=== PATIENT | male | born 1930 | race Two or more races ===

== ENCOUNTER 2016-12-18 06:32 | Inpatient (IN) | payer MEDICARE ==
--- NOTE | 2016-12-02 19:01 | HP ---
PREOPERATIVE HISTORY AND PHYSICAL: DATE OF ADMISSION/SURGERY: 12/18/16 This patient is scheduled for AA admission by Dr. Ch on 12/18/16. DATE OF PREOPERATIVE HISTORY AND PHYSICAL EXAMINATION: 12/02/16. ATTENDING SURGEON: Dr. Guille Ch (dictated by Vijaya Scherer NP). CHIEF COMPLAINT: Colon cancer. HISTORY OF PRESENT ILLNESS: The patient is an 86-year-old male recently evaluated by Dr. 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 The patient was diagnosed with anemia and rectal bleeding. Workup included an EGD and a colonoscopy by Dr. Garner, . The EGD revealed duodenitis and gastric erosion. The colonoscopy got as far as a sigmoid lesion that did not allow additional navigation of the scope. The large colonic mass was friable and oozing blood. Biopsies were taken and the lesion was injected with tattoo ink. No other lesions were identified and the biopsy revealed moderately differentiated adenocarcinoma. Dr. Ch examined the patient and ordered a CAT scan of the chest, abdomen, and pelvis. There were no suspicious thoracic lesions. Other than the primary tumor in the sigmoid colon, there were no other intra-abdominal lesions. There was a nonspecific sclerotic lesion of the right femur described as very low suspicion for metastasis. Dr. Ch has recommended open partial colectomy and described to the patient and his family the nature of the surgical procedure, the rationale for the surgical procedure, the relevant risks and benefits, the typical hospitalization, and expected postoperative recovery. The patient will take a bowel cleansing prep on the day before surgery consisting of clear liquid diet, Colyte laxative, neomycin, and Flagyl tablets. The patient and his family have had a chance to ask questions and stated that they understand the information and are satisfied with the answers given to their questions. The patient will sign surgical consent on the day of surgery. The patient has been cleared to proceed by Dr. Gutierrez from Cardiology. Please see review of systems for further details. The patient will hold Plavix for 5 days preoperatively and take the last dose, 12/12/16. The patient is extremely hard of hearing and is very dependent on his family for information. PAST MEDICAL HISTORY: Significant for left CVA, with residual unsteady gait and spastic paraparesis; hypertension; aortic stenosis; and anemia. Hard of hearing. PAST SURGICAL HISTORY: Appendectomy, cataract extraction, and left ear surgery for cancer. MEDICATIONS: 1. Plavix 75 mg p.o. daily and he will take his last dose preoperatively, 12/12. 2. Folic acid 1 mg p.o. daily. 3. Travatan Z 0.004% one drop in both eyes at bedtime daily. 4. Losartan 100 mg p.o. daily. 5. Timolol maleate 0.5% one drop right eye daily in the morning. 6. Fluvastatin 40 mg p.o. daily at bedtime. 7. Centrum Silver 1 tablet daily. 8. Brimonidine 0.2% b.i.d. 9. Hydrochlorothiazide 25 mg p.o. daily. 10. Vitamin B12 p.o. daily. ALLERGIES: No known drug allergies. FAMILY HISTORY: No known anesthesia complications or bleeding tendencies. One of the patient's brothers had deep vein thrombosis. The patient's father had leukemia and the patient's mother was diabetic. SOCIAL HISTORY: He is and lives with his . His son accompanied them to the visit today. 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 He has never been a smoker. He currently does not drink alcohol or use other substances. REVIEW OF SYSTEMS: The patient has a history of aortic stenosis and underwent a transesophageal echocardiogram with Dr. Gutierrez, 11/11/16, which confirmed moderate to severe aortic stenosis. Dr. Gutierrez had a long discussion with the patient and his family regarding the aortic stenosis and the need for surgery, and they agreed that the most reasonable option at this time would be to proceed with the colon cancer surgery in which there is an elevated, but not prohibitive, risk of cardiovascular complications. Dr. Gutierrez also discussed this in person with Dr. Che from Anesthesia. The patient underwent transthoracic echocardiogram, 11/01/16, which revealed normal LV size with an ejection fraction greater than 70%. He also underwent a chemical stress test, , which was normal with an ejection fraction around 68% to 69%. He has a history of left CVA. His speech is clear. He does not have any deficits of the upper extremities. 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 He denies any chest pain or palpitations. He denies any history of deep vein thrombosis or pulmonary embolism. He has been on Plavix and will hold that for 5 days preoperatively. He denies any unusual shortness of breath. He denies any history of pneumonia; he denies any previous anesthesia complications; he denies any blood transfusions; he was diagnosed with anemia related to the rectal bleeding in October and recent hemoglobin was 9. He denies any nausea, vomiting, current rectal bleeding, constipation, or diarrhea. He denies any acid reflux. His upper endoscopy did reveal duodenitis and gastric erosion. Negative CLOtest. He denies any change in his weight. He denies any dysuria. He uses a walker for gait stability. PHYSICAL EXAMINATION GENERAL SURVEY: The patient is an 86-year-old male, well developed, well nourished, in no acute distress. VITAL SIGNS: Height 64-1/2 inches, weight 146 pounds, body mass index 24.7, blood pressure 120/78, pulse 82 and regular, respiratory rate 16, temperature 98.3 tympanic. HEENT: Benign. NECK: Supple. No cervical lymphadenopathy. BACK: No CVA tenderness. LUNGS: Breath sounds bilaterally clear and equal. No tachypnea. No increased work of breathing. HEART: Systolic murmur radiates to bilateral carotids. Regular rate and rhythm , 3/6 systolic murmur. ABDOMEN: Active bowel sounds. Soft, nondistended, nontender throughout. No obvious masses or organomegaly or evidence of umbilical hernia. EXTREMITIES: Warm. No edema. Full range of motion of the upper extremities. The left lower extremity has spastic paraparesis. Right lower extremity, normal range of motion and strength. GENITALIA AND RECTAL: Exams deferred. NEUROLOGIC: Alert and oriented x3. Uses a walker for gait steadiness. SKIN: Warm, dry, intact. IMPRESSION: Adenocarcinoma of the splenic flexure. PLAN: AA admission to Dr. Ch's service on 12/18/16, for open partial colectomy. The patient will take a bowel cleansing prep on the day before surgery, 12/17/16, consisting of clear liquids, Colyte laxative, neomycin , and Flagyl. He will hold his Plavix 5 days preoperatively. KATT SCHERER NP CC: Dr. Ch; Dr. Davis; Dr. Guille Gutierrez* [id number]/[facility] #: [id number] COLLEEN
[~2016-12-18 06:32] MED LIST: Buffered Lidocaine 1% SYR 3ML* 3 ML/SYR SYRINGE INTRADERM ONE; ERTApenem(*) 1 GM in NS 0.9% 50 ML* 50 ML IVPB SCH; Famotidine IV* 10 MG/ML 2 ML (20 mg) IV ONE; Famotidine IV* 10 MG/ML 2 ML (20 mg) ONE; Heparin VIAL(*) 5000 UNITS/ML VIAL (FIVE THOUSAND) ONE
[2016-12-18] MEDS ORDERED: KETAMINE HCL* 50 MG/ML 10 ML VIAL ONE (07:25)
[2016-12-18] MEDS ORDERED: Atracurium* 10 MG/ML 10 ML VIAL ONE (07:25)
[2016-12-18] MEDS ORDERED: Midazolam* 1 MG/ML 5 ML VIAL (5 MG) ONE (07:26)
[2016-12-18] MEDS ORDERED: fentaNYL* 50 MCG/ML 5 ML VIAL (250 MCG VIAL) ONE (07:26)
[2016-12-18] MEDS ORDERED: Desflurane* 240 ML INH ONE (09:21)
[2016-12-18] MEDS ORDERED: Dexamethasone IV* 4 MG/ML 1 ML (4 MG) ONE (09:30)
[2016-12-18] MEDS ORDERED: Lidocaine 2% PF * 5 ML VIAL ONE (09:30)
[2016-12-18] MEDS ORDERED: Ondansetron INJ* 2 MG/ML VIAL ONE (09:30)
[2016-12-18] MEDS ORDERED: Phenylephrine INJ* 10 MG/ML 1 ML VIAL (10 MG) ONE (09:30)
[2016-12-18] MEDS ORDERED: Neostigmine Methylsulfate* 2 MG/2 ML SYRINGE ONE (09:30)
[2016-12-18] MEDS ORDERED: Propofol* 10 MG/ML 20 ML BTL IV PUSH ONE (09:30)
[2016-12-18] MEDS ORDERED: Glycopyrrolate IV* 0.2 MG/ML 1 ML VIAL ONE (09:30)
[2016-12-18] MEDS ORDERED: EPHEDrine (Pressors)* 50 MG/ML VIAL ONE (10:06)
[2016-12-18] MEDS ORDERED: Morphine INJ* 2 MG/ML 1 ML SYRINGE IV PRN (10:14)
[2016-12-18] MEDS ORDERED: fentaNYL* 50 MCG/ML 2 ML VIAL (100 MCG VIAL) IV PRN (10:14)
[2016-12-18] MEDS ORDERED: PROCHLORPERAZINE INJ 5 MG/ML 2 ML VIAL IV PRN (10:14)
[2016-12-18] MEDS ORDERED: Morphine INJ* 10 MG/ML 1 ML SYRINGE ONE (10:16)
[2016-12-18] MEDS ORDERED: Flumazenil* 0.1 MG/ML 5 ML MDV ONE (11:16)
[2016-12-18] MEDS ORDERED: Ondansetron INJ* 2 MG/ML VIAL IV PRN (11:26)
[2016-12-18] MEDS ORDERED: Docusate CAP* 100 MG PO PRN (11:26)
[2016-12-18] MEDS ORDERED: Acetaminophen TAB* 325 MG PO PRN (11:26)
--- NOTE | 2016-12-18 11:27 | SURGPN ---
Brief Operative Note - Surgery Procedures: Procedures Pre-OP Diagnoses: Colon cancer Post-op Diagnosis: same Procedure: Open partial colectomy Surgeon: Dima Asst: Ramy Kirby: JOSE RAFAEL Kumar EBL: 100 IVF: 2500cc LR Specimen: 1. Descending Colon 2. additional distal margin with inflammatory mass Drains: none lopez:
[2016-12-18] MEDS ORDERED: fentaNYL* 50 MCG/ML 2 ML VIAL (100 MCG VIAL) ONE (12:19)
[2016-12-18] MEDS ORDERED: PROCHLORPERAZINE INJ 5 MG/ML 2 ML VIAL ONE (12:30)
[2016-12-18] MEDS: Morphine INJ* 2 MG/ML 1 ML SYRINGE IV PRN (14:16)
--- NOTE | 2016-12-18 19:42 | CONS ---
CONSULTATION REPORT: DATE OF CONSULT: 12/18/16 PRIMARY CARE PROVIDER: Dr. Carmelo Davis. ATTENDING PHYSICIAN: Dr. Yogesh Medina (dictated by Elvira James NP). PHYSICIAN REQUESTING CONSULT: Dr. Guille Ch. REASON FOR CONSULT: Co-medical management in a patient with a history of moderate- to-severe aortic stenosis, hypertension, and history of cerebrovascular accident. HISTORY OF PRESENT ILLNESS: Mr. Puente is an 86-year-old male with past medical history significant for hypertension, sqrrhgby-lt-aittih aortic stenosis , anemia, coronary artery disease, and adenocarcinoma of the splenic flexure, who presented to the hospital and is now status post partial open colectomy with Dr. Ch today. The patient was evaluated in the recovery room and had no family present and was too sedated to obtain a history from. The patient's history was obtained from the patient's medical record. According to the patient's medical record, he was diagnosed with anemia and rectal bleeding. He had an EGD and colonoscopy by Dr. Garner in October of 2016 that revealed duodenitis and gastric erosion. The patient had also underwent colonoscopy and had biopsies taken and the patient was found to have adenocarcinoma. The patient also had a CT scan of his chest, abdomen, and pelvis. There were no suspicious thoracic lesions other than the primary tumor noted in the sigmoid colon. There was a nonspecific sclerotic lesion of the right femur described as a low suspicion for metastasis. Dr. Ch recommended an open partial colectomy. 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 Gutierrez. The patient underwent cardiac stress test and echocardiogram and was felt he was optimized for surgery. Hospitalists were asked to assist with management of this patient during his postoperative period. PAST MEDICAL HISTORY: 1. History of left cerebrovascular accident with residual unsteady gait and spastic paraparesis. 2. Hypertension. 3. Qnodisuc-fr-asqvol aortic stenosis. 4. Anemia. 5. Coronary artery disease. 6. 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 7. Hemorrhoids. 8. Adenocarcinoma of the splenic flexure. PAST SURGICAL HISTORY: 1. Status post appendectomy. 2. Status post cataract extraction. 3. Status post excision of basal cell carcinoma from the left ear. HOME MEDICATIONS: Include: 1. Plavix 75 mg oral daily, the patient's last preoperative dose was scheduled for December 12. 2. Folic acid 1 mg oral daily. 3. Travatan Z 0.004% one drop to both eyes daily at bedtime. 4. Losartan 100 mg oral daily. 5. Timolol 0.5% one drop to the right eye daily in the morning. 6. Fluvastatin 40 mg oral daily at bedtime. 7. Centrum Silver 1 mg oral daily. 8. Brimonidine 0.2% one drop to both eyes twice daily. 9. Hydrochlorothiazide 25 mg oral daily. 10. Vitamin B12 500 mcg oral daily. ALLERGIES: No known drug allergies. FAMILY HISTORY: The patient's father had a history of leukemia. The patient's mother had a history of diabetes mellitus. The patient has 2 brothers with history of heart disease. SOCIAL HISTORY: The patient has never smoked, does not drink alcohol, or use recreational drugs. He lives with his . His , Eva Puente, will be his surrogate decision maker in the event he is unable to make decisions for himself. REVIEW OF SYSTEMS: I was unable to perform review of systems due to the patient being sedated while in the PACU. PHYSICAL EXAM: Vital Signs: Temperature 97.0, heart rate 78, respiratory rate 12, O2 sat 96% on 2 L via nasal cannula, blood pressure 130/55. Appearance: The patient appears to be in no acute distress. HEENT: Normocephalic, atraumatic. Pupils are equal and reactive to light. Cardiovascular: Regular rate and rhythm. S1, S2 present. The patient has a 4/6 grade murmur heard throughout the chest. This is heard best at the left sternal border. Extremities: There is no extremity edema. DP and PT pulses are 2+ and symmetric. Respiratory: There is no accessory muscle use and the lungs are clear to auscultation bilateral. Abdomen: Soft, nontender, nondistended. The patient has hypoactive bowel sounds in all 4 quadrants. Musculoskeletal: There is no clubbing or cyanosis noted. Skin: There is a large dressing to the patient's abdomen that is clean, dry, and intact. DIAGNOSTIC STUDIES/LAB DATA: Preoperative labs from 11/07/16. Sodium 138, potassium 3.9, chloride 102, CO2 30, BUN 16, creatinine 0.92, glucose 94. White blood cell count 5.2, hemoglobin 9.6, hematocrit 30, platelet count 256. EKG from 10/28/16 shows a normal sinus rhythm. IMPRESSION: Mr. Puente is an 86-year-old male with past medical history significant for coronary artery disease, hypertension, xwchbnml-eb-vthqgz aortic stenosis, history of cerebrovascular accident, and adenocarcinoma of the splenic flexure, who presented to the hospital today for partial open colectomy with Dr. Ch. Hospitalists were asked to assist with the co-management of this patient during his hospitalization. ASSESSMENT/PLAN: 1. Adenocarcinoma of the splenic flexure. Status post partial open colectomy. Management per General Surgery. The patient will have pain management. At this time, he is n.p.o. except for medications. 2. Aortic stenosis. The patient is currently asymptomatic. He should follow with Cardiology outpatient. 3. Hypertension. The patient's blood pressure has been mostly normotensive in the PACU. We will monitor his blood pressures. If he becomes hypertensive, we will continue his losartan and hydrochlorothiazide. If his blood pressures remain soft, we will consider just restarting his losartan and holding his hydrochlorothiazide. 4. History of cerebrovascular accident. The patient will have his Plavix resumed per General Surgery and will be continued on a statin. 5. Fluids, electrolytes, and nutrition. The patient is n.p.o. at this time and is receiving lactated Ringer's at 100 mL an hour. 6. DVT prophylaxis. Management per Orthopedic Surgery. The patient is on subcu heparin. 7. Code status. Full code. 8. Disposition. Inpatient with disposition per General Surgery. TIME SPENT: The time for this consultation was 45 minutes and approximately half of that was spent doing a physical exam on the patient. The rest of the time was spent reviewing the patient's medical record. The plan has been discussed with the attending, Dr. Medina, who agrees with the plan of care. Reviewed by ELVIRA JAMES, YAA 12/21/16 [id number] CC: Dr. Guille Ch; Dr. Carmelo Davis* [id number]/[facility] #: [id number] MTDD
[2016-12-18] MEDS: Latanoprost 0.005%* 2.5 ml BTL BOTH EYES SCH (22:06)
--- NOTE | 2016-12-18 23:34 | OP ---
DATE OF OPERATION: 12/18/16 - ROOM #ICU-03 DATE OF : 32 SURGEON: Guille Ch MD CERTIFIED PERFORMANCE TECHNOLOGIST: Travis Mccann MD ANESTHESIA: General. ANESTHESIOLOGIST: Dr. Kumar. PRE-OP DIAGNOSIS: Colon cancer. POST-OP DIAGNOSIS: Colon cancer. OPERATIVE PROCEDURE: Open partial colectomy. BLOOD LOSS: 100 cc. FLUIDS: Crystalloid fluid given 2500 cc. URINE OUTPUT: Less than 300 cc via [place] Catheter. SPECIMEN: 1. Descending colon with tattooed lesion. 2. Additional distal margin with inflammatory changes. DRAINS: None. COUNTS: Lap pad count and instrument count correct at the end of the procedure. DISPOSITION: The patient extubated, transferred to PACU for planned ICU admission. DESCRIPTION OF PROCEDURE: Mr. Puente is an 86-year-old gentleman who was diagnosed with a bleeding adenocarcinoma of the descending colon splenic flexure area. He was worked up with EGD and CAT scan and plan was for a partial colectomy. The patient's family understood the risks, benefits, and alternatives and the patient understood as well and signed consent, was identified in the preoperative on the day of surgery. He had been bowel prepped with oral antibiotics and GoLYTELY. He was marked, brought to the operating room, and placed on the operating table in the supine position. The patient already had A-line placed in the left radial artery. General anesthesia was induced after delivery of preoperative antibiotics and sequential devices, which were placed on bilateral lower extremities. Colorado catheter was inserted and the abdominal hair was clipped and the abdomen was prepped and draped in the standard surgical fashion and time- out was performed. A midline incision was made approximately 1 handbreadth above the umbilicus extending about 1 handbreadth low. This was deepened down throughout the layers of the abdomen and entry into the abdominal cavity was made. There was no free fluid. Bowel appeared intact. The omentum was then removed from the pelvis as well as at the right lower quadrant open appendectomy site. Once this was reflected anteriorly, we did examine more of the abdomen. The tattooed descending colon lesion was identified. Examination of the liver showed no lesions. Next, the was utilized packing the small bowel along with the omentum in the right upper quadrant. Sigmoid colon was identified that showed some inflammatory changes. This was pulled up out of the pelvis with electrocautery. We were able to mobilize this somewhat better. There was a mass in the proximal sigmoid colon. This did not appear malignant, but we were unsure of its role. Next, the descending colon was mobilized taking the white line of Toldt right up to the splenic flexure. Ultimately, the splenic flexure was taken down in its entirety. The colon was then mobilized and again we had the tattooed lesion , which was approximately 3 cm within our dissected area. However, this inflammatory process at the sigmoid colon was somewhat concerning. We were able to additional dissection to pull this off of the iliac fossa. We did identify a left ureter and kept this protected throughout the case. With the sigmoid up and the lesion identified, it appeared to be inflammatory. Next, point was chosen on the descending colon just proximal to the lesion approximately 5 cm. A window was made and the mesentery was taken with the LigaSure device extending this towards the proximal sigmoid colon. The blood supply appeared good to what would be the proximal margin of our anastomosis site and therefore, the bowel was transected with a 60 mm KARLO stapler blue load. Next, we placed a TA at our planned distal margin for the adenocarcinoma excision and opened up our colon. The specimen was passed off and we examined the opening of this sigmoid colon, placed my finger into the area. The mucosa was smooth. However, it appeared strictured at this lesion and the decision was made to remove it in its entirety. We took additional sigmoid mesentery and I placed a #60 KARLO blue load stapler across the sigmoid colon just distal to this inflammatory lesion. It was then also passed off and we brought the 2 limbs in apposition to each other. There was no tension. They lay in a good fashion and the decision was made to do a side to side anastomosis. Colotomies were made with cautery and the 60 mm KARLO stapling device blue load was utilized to create the anastomosis. The common defect was closed with a TA90 blue load KARLO stapling device. The corners were dunked down at the anastomosis with 3-0 silk sutures. The crotch of the staple line was similarly closed with a silk suture. The mesenteric defect was not reapproximated. The bowel edges appeared pink and viable. Hemostasis was excellent. Next, we had reviewed the iliac fossa where the sigmoid colon did come off of the side wall. This area was oozing and a Surgicel was placed at this site. This was lifted off and additional oozing was identified and hemostasis was achieved with electrocautery. However, we placed an additional portion of the Surgicel at this site. Wound was copiously irrigated and there was virtually no spillage. The irrigation was removed and the anastomosis was allowed to drop back in towards the pelvis. Omentum was covered at this site and the self retaining retractor was removed. Next, the abdomen was reapproximated with interrupted with #1 Polysorb sutures in a meiuyy-ec-zdgvi fashion. The skin edges were irrigated and reapproximated with skin melly. Sterile dressing was applied and the patient tolerated the procedure well and was transferred to the PACU in stable condition. CC: Carmelo Davis MD; Guille Gutierrez DO * [id number]/[facility] #: [id number] MTDD
[2016-12-19] MEDS: Heparin VIAL(*) 5000 UNITS/ML VIAL (FIVE THOUSAND) SUBCUT SCH ×4 (05:47→20:31)
[2016-12-19 05:58] LABS: Hematocrit 28 % (42-52); Hemoglobin 8.7 g/dl (14.0-18.0); Mean Corpuscular HGB Conc 32 g/dl (31-36); Mean Corpuscular Hemoglobin 23 pg (27-31); Mean Platelet Volume 8 um3 (7.4-10.4); Red Blood Count 3.79 10^6/ul (4.0-5.4); Red Cell Distribution Width 18 % (10.5-15); White Blood Count 16.3 10^3/ul (3.5-10.8)
[2016-12-19 06:00] LABS: BUN/Creatinine Ratio 16.5 (8-20); Calcium 8.2 mg/dL (8.6-10.3); EGFR African American 94.6 (>60); EGFR Non-African American 73.6 (>60); Magnesium 1.5 mg/dL (1.9-2.7); Potassium 3.6 mmol/L (3.5-5.0)
[2016-12-19 06:04] LABS: Comments Flag Yes
[2016-12-19 06:05] LABS: Mean Corpuscular Volume 73 fL (80-94)
[2016-12-19] MEDS ORDERED: Magnesium Sulfate 2 GM IV* 2 GM/50 ML BAG IVPB ONE (08:47)
[2016-12-19] MEDS ORDERED: Famotidine IV* 10 MG/ML 2 ML (20 mg) ONE (09:39)
--- NOTE | 2016-12-19 09:40 | PN ---
Progress Note - Progress Note SOAP: Subjective: Pt seen and examined. Some abdo pain. No nausea. He is thirsty. We stood patient up today and he walked to chair Objective: tachycardic. normotensive, Tm 100. O2 sat 98 on RA a and o x 3 lungs clear at apices abdo: soft, distended, tender. dressing intact no calf tenderness labs noted Assessment: POD 1 partial colectomy Plan: monitor in ICU 24 more hrs. continue lopez ice chips labs in am
[2016-12-19] MEDS: Timolol 0.5% OPTH.SOL* BTL BOTH EYES SCH (09:45)
[2016-12-19] MEDS: Losartan TAB* 25 MG PO SCH (09:46)
[2016-12-19] MEDS: Hydrochlorothiazide TAB* 25 MG PO SCH (09:46)
--- NOTE | 2016-12-19 10:04 | PN ---
Subjective Date of Service: 12/19/16 Interval History: Mr. Puente reports some mild pain in his abdomen. He denies chest pain, SOB , nausea, or abdominal pain. Family History: Unchanged from Admission Social History: Unchanged from Admission Past Medical History: Unchanged from Admission Objective Active Medications: Acetaminophen (Tylenol Tab*) 650 mg PO Q4H PRN Brimonidine Tartrate (Alphagan 0.2%) 1 drop BOTH EYES BID [facility] Docusate Sodium (Colace Cap*) 100 mg PO BID PRN Heparin Sodium (Porcine) (Heparin Vial(*)) 5,000 units SUBCUT Q8HR [facility] Hydrochlorothiazide (Hydrodiuril Tab*) 25 mg PO QAM [facility] Lactated Ringer's (Lactated Ringers 1000 Ml Bag*) 1,000 mls @ 100 mls/hr IV .per rate [facility] Famotidine 20 mg/ Sodium (Chloride) 102 mls @ 408 mls/hr IVPB BID [facility] Latanoprost (Xalatan 0.005%*) 1 drop BOTH EYES BEDTIME [facility] Losartan Potassium (Cozaar Tab*) 100 mg PO QAM [facility] Morphine Sulfate (Morphine Inj (Syringe)*) 2 mg IV Q2H PRN Ondansetron HCl (Zofran Inj*) 4 mg IV Q4H PRN Timolol Maleate (Timoptic 0.5% Opth*) 1 drop BOTH EYES QAM [facility] Vital Signs 12/18/16 12/18/16 12/18/16 11:31 11:35 11:40 Temperature 97.3 F Pulse Rate 76 73 71 Respiratory 12 13 12 Rate Blood Pressure 114/55 (mmHg) O2 Sat by Pulse 98 100 100 Oximetry 12/18/16 12/18/16 12/18/16 11:45 11:50 11:55 Temperature Pulse Rate 68 66 80 Respiratory 11 14 14 Rate Blood Pressure (mmHg) O2 Sat by Pulse 100 100 100 Oximetry 12/18/16 12/18/16 12/18/16 12:00 12:15 12:22 Temperature 97.0 F Pulse Rate 81 74 Respiratory 13 10 10 Rate Blood Pressure (mmHg) O2 Sat by Pulse 100 99 Oximetry 12/18/16 12/18/16 12/18/16 12:30 12:45 13:00 Temperature Pulse Rate 74 70 80 Respiratory 11 14 12 Rate Blood Pressure 123/52 130/55 (mmHg) O2 Sat by Pulse 97 98 98 Oximetry 12/18/16 12/18/16 12/18/16 13:15 13:30 13:54 Temperature Pulse Rate 90 100 102 Respiratory 15 18 Rate Blood Pressure 150/70 168/76 (mmHg) O2 Sat by Pulse 99 98 95 Oximetry 12/18/16 12/18/16 12/18/16 14:00 14:06 14:15 Temperature 97.9 F 97.8 F Pulse Rate 105 103 95 Respiratory 17 16 17 Rate Blood Pressure 166/67 163/67 144/79 (mmHg) O2 Sat by Pulse 94 97 91 Oximetry 12/18/16 12/18/16 12/18/16 14:16 14:30 14:45 Temperature Pulse Rate 94 97 Respiratory 16 13 16 Rate Blood Pressure 146/62 143/81 (mmHg) O2 Sat by Pulse 98 99 Oximetry 12/18/16 12/18/16 12/18/16 15:00 15:15 15:30 Temperature Pulse Rate 93 92 99 Respiratory 15 14 16 Rate Blood Pressure 134/64 128/69 147/71 (mmHg) O2 Sat by Pulse 96 96 99 Oximetry 12/18/16 12/18/16 12/18/16 15:45 16:00 16:15 Temperature 97.9 F Pulse Rate 99 103 104 Respiratory 17 21 14 Rate Blood Pressure 137/75 141/64 136/75 (mmHg) O2 Sat by Pulse 99 99 100 Oximetry 12/18/16 12/18/16 12/18/16 16:30 16:45 17:00 Temperature Pulse Rate 102 103 Respiratory 16 13 Rate Blood Pressure 144/124 146/73 132/61 (mmHg) O2 Sat by Pulse 99 100 Oximetry 12/18/16 12/18/16 12/18/16 17:15 17:30 17:45 Temperature Pulse Rate 107 104 103 Respiratory 18 12 12 Rate Blood Pressure 134/69 131/65 118/66 (mmHg) O2 Sat by Pulse 99 100 99 Oximetry 12/18/16 12/18/16 12/18/16 18:00 18:39 19:00 Temperature Pulse Rate 115 Respiratory 19 12 12 Rate Blood Pressure 132/66 133/65 (mmHg) O2 Sat by Pulse 100 99 99 Oximetry 12/18/16 12/18/16 12/18/16 20:00 21:00 21:02 Temperature 99.6 F Pulse Rate 104 Respiratory 16 10 20 Rate Blood Pressure 124/66 115/63 (mmHg) O2 Sat by Pulse 100 99 Oximetry 12/18/16 12/18/16 12/18/16 22:00 22:44 23:00 Temperature Pulse Rate 96 95 Respiratory 12 12 Rate Blood Pressure 129/62 119/54 (mmHg) O2 Sat by Pulse 100 98 100 Oximetry 12/19/16 12/19/16 12/19/16 00:00 00:01 01:00 Temperature 99.1 F Pulse Rate 97 100 Respiratory 15 17 16 Rate Blood Pressure 110/60 (mmHg) O2 Sat by Pulse 99 98 99 Oximetry 12/19/16 12/19/16 12/19/16 02:00 03:00 04:00 Temperature 100.0 F Pulse Rate 99 Respiratory 13 17 17 Rate Blood Pressure (mmHg) O2 Sat by Pulse 99 98 96 Oximetry 12/19/16 12/19/16 12/19/16 05:00 05:24 06:00 Temperature Pulse Rate 90 Respiratory 13 19 14 Rate Blood Pressure (mmHg) O2 Sat by Pulse 99 99 Oximetry 12/19/16 12/19/16 12/19/16 06:55 07:00 07:25 Temperature 99.9 F Pulse Rate 103 Respiratory 14 15 Rate Blood Pressure (mmHg) O2 Sat by Pulse 99 Oximetry 12/19/16 12/19/16 12/19/16 07:59 08:00 09:00 Temperature Pulse Rate 130 110 Respiratory 18 21 20 Rate Blood Pressure 148/65 (mmHg) O2 Sat by Pulse 98 95 Oximetry Oxygen Devices in Use Now: None Appearance: Elderly male sitting up in chair in NAD Eyes: No Scleral Icterus Ears/Nose/Mouth/Throat: Mucous Membranes Moist Neck: Trachea Midline Respiratory: Symmetrical Chest Expansion and Respiratory Effort, Clear to Auscultation Cardiovascular: NL Sounds; No Murmurs; No JVD, No Edema Abdominal: - - Mild generalized tenderness Lymphatic: No Cervical Adenopathy Extremities: No Edema Skin: No Rash or Ulcers Neurological: Alert and Oriented x 3, NL Muscle Strength and Tone Nutrition: - - sips of H20 only Result Diagrams: 12/19/16 05:21 12/19/16 05:21 Assess/Plan/Problems-Billing Assessment: Mr. Puente is an 86 yo male with a PMH of severe aortic stenosis, CVA, and hypertension who was admitted on 12/18/16 for resection of adenocarcinoma with colectomy. - Patient Problems (1) Colon cancer Comment: s/p colectomy on 12/18/16. (2) Aortic stenosis Comment: Moderate to severe. Asymptomatic. Appears euvolemic. (3) Delirium Comment: Pt very agitated and pulling at lines/tubes. Haldol available prn. (4) Hypertension Comment: SBP 140s. Continue hctz and losartan. (5) CAD (coronary artery disease) Comment: With hx of CVA. Resume plavix when approved per surgery. Continue atorvastatin. (6) Full code status (7) DVT prophylaxis Comment: Heparin SQ.
[2016-12-19] MEDS: Morphine INJ* 2 MG/ML 1 ML SYRINGE IV PRN ×2 (14:12→22:32)
[2016-12-19] MEDS ORDERED: Haloperidol INJ IV/IM* 5 MG/ML AMP ONE (14:26)
[2016-12-19] MEDS: Haloperidol INJ IV/IM* 5 MG/ML AMP IV SLOW PU PRN ×2 (14:28→20:32)
[2016-12-19] MEDS ORDERED: NS 0.9% 500 ML BAG* 500 ML IV ONE (18:00)
[2016-12-19] MEDS: Latanoprost 0.005%* 2.5 ml BTL BOTH EYES SCH (20:30)
[2016-12-20] MEDS: Haloperidol INJ IV/IM* 5 MG/ML AMP IV SLOW PU PRN ×3 (00:39→21:27)
[2016-12-20] MEDS: Morphine INJ* 2 MG/ML 1 ML SYRINGE IV PRN ×2 (01:06→05:40)
[2016-12-20] MEDS: Heparin VIAL(*) 5000 UNITS/ML VIAL (FIVE THOUSAND) SUBCUT SCH ×3 (05:22→21:26)
[2016-12-20 06:28] LABS: Hematocrit 28 % (42-52); Hemoglobin 8.7 g/dl (14.0-18.0); Mean Corpuscular HGB Conc 32 g/dl (31-36); Mean Corpuscular Hemoglobin 23 pg (27-31); Mean Platelet Volume 8 um3 (7.4-10.4); Red Blood Count 3.77 10^6/ul (4.0-5.4); Red Cell Distribution Width 18 % (10.5-15); White Blood Count 13.4 10^3/ul (3.5-10.8)
[2016-12-20 06:36] LABS: Comments Flag Yes; Mean Corpuscular Volume 73 fL (80-94)
[2016-12-20 06:43] LABS: BUN/Creatinine Ratio 16.5 (8-20); Calcium 8.4 mg/dL (8.6-10.3); EGFR African American 88.3 (>60); EGFR Non-African American 68.6 (>60); Potassium 3.3 mmol/L (3.5-5.0)
[2016-12-20] MEDS: Timolol 0.5% OPTH.SOL* BTL BOTH EYES SCH (07:49)
[2016-12-20] MEDS ORDERED: Potassium Phosphate IV* 15 MMOLE in NS 0.9% 250 ML* 250 ML IVPB ONE (08:36)
[2016-12-20] MEDS: KCL 10 MEQ/50 ML IVPREMIX* 10 MEQ/50 ML BAG IV SCH ×3 (08:45→11:17)
--- NOTE | 2016-12-20 08:46 | PN ---
Progress Note - Progress Note SOAP: Subjective: Pt seen and examined. Overnight events noted. Pt remains tachycardic. He has received haldol and morphine overnight. Lopez out at [place] and no void until just now. Bladder scan >300cc, however only voided 50cc after standing. No nausea, positive appetite. some flatus. Objective: tm 100.1, af, HR 100-140s , MAP >70. RR <20 a and o x3 at this time. NAD lungs clear, breaths shallow abdo: soft, ND, incisional tenderness incision intact w/o redness no calf tenderness labs noted PAth reviewed T3N0 Assessment: POD2 partial colectomy, SIRS. but wbc going down hypokalemia anemia but unchanged compared to preoop Plan: bolus 500cc wait 4 more hours prior to lopez cath; strart flomax plavix to start tomorrow replete K PT, OOB Incentive spirometer GI, DVT proph possible transferto floor later today PICC line to go into weekend
[2016-12-20] MEDS: Hydrochlorothiazide TAB* 25 MG PO SCH (08:58)
[2016-12-20] MEDS: Losartan TAB* 25 MG PO SCH (08:58)
[2016-12-20] MEDS ORDERED: NS 0.9% 500 ML BAG* 500 ML IV ONE (09:00)
[2016-12-20] MEDS: Tamsulosin CAP* 0.4 MG PO SCH (15:03)
--- NOTE | 2016-12-20 16:11 | PN ---
Subjective Date of Service: 12/20/16 Interval History: Mr. Puente denies complaint this afternoon. He specifically denies nausea, abdominal pain, chest pain, or SOB. Family History: Unchanged from Admission Social History: Unchanged from Admission Past Medical History: Unchanged from Admission Objective Active Medications: Acetaminophen (Tylenol Tab*) 650 mg PO Q4H PRN Atorvastatin Calcium (Lipitor*) 20 mg PO 1700 [facility] Brimonidine Tartrate (Alphagan 0.2%) 1 drop BOTH EYES BID [facility]I Clopidogrel Bisulfate (Plavix Tab*) 75 mg PO QAM [facility] Docusate Sodium (Colace Cap*) 100 mg PO BID PRN Haloperidol Lactate (Haldol Inj Iv/Im*) 2 mg IV SLOW PU Q4H PRN Heparin Sodium (Porcine) (Heparin Vial(*)) 5,000 units SUBCUT Q8HR [facility] Hydrochlorothiazide (Hydrodiuril Tab*) 25 mg PO QAM [facility] Famotidine 20 mg/ Sodium (Chloride) 102 mls @ 408 mls/hr IVPB BID [facility] Lactated Ringer's (Lactated Ringers 1000 Ml Bag*) 1,000 mls @ 50 mls/hr IV .per rate [facility] Latanoprost (Xalatan 0.005%*) 1 drop BOTH EYES BEDTIME [facility] Losartan Potassium (Cozaar Tab*) 100 mg PO QAM [facility] Morphine Sulfate (Morphine Inj (Syringe)*) 2 mg IV Q2H PRN Ondansetron HCl (Zofran Inj*) 4 mg IV Q4H PRN Tamsulosin HCl (Flomax Cap*) 0.4 mg PO DAILY [facility] Timolol Maleate (Timoptic 0.5% Opth*) 1 drop BOTH EYES QAM [facility] Vital Signs 12/19/16 12/19/16 12/19/16 17:00 17:07 18:00 Temperature Pulse Rate Respiratory 19 19 24 Rate Blood Pressure 147/70 (mmHg) O2 Sat by Pulse Oximetry 12/19/16 12/19/16 12/19/16 18:09 18:30 19:00 Temperature Pulse Rate Respiratory 17 19 16 Rate Blood Pressure 163/76 (mmHg) O2 Sat by Pulse Oximetry 12/19/16 12/19/16 12/19/16 19:16 19:44 19:47 Temperature 100.1 F Pulse Rate Respiratory 16 14 Rate Blood Pressure 135/72 (mmHg) O2 Sat by Pulse Oximetry 12/19/16 12/19/16 12/19/16 20:00 21:00 21:46 Temperature Pulse Rate Respiratory 22 19 19 Rate Blood Pressure 125/71 (mmHg) O2 Sat by Pulse 94 94 94 Oximetry 12/19/16 12/19/16 12/19/16 22:00 22:32 22:35 Temperature Pulse Rate Respiratory 17 26 26 Rate Blood Pressure 129/59 (mmHg) O2 Sat by Pulse Oximetry 12/19/16 12/19/16 12/19/16 23:00 23:05 23:47 Temperature 98.9 F Pulse Rate Respiratory 16 13 Rate Blood Pressure 130/72 (mmHg) O2 Sat by Pulse Oximetry 12/20/16 12/20/16 12/20/16 00:00 00:02 00:09 Temperature Pulse Rate Respiratory 14 19 20 Rate Blood Pressure 143/115 (mmHg) O2 Sat by Pulse Oximetry 12/20/16 12/20/16 12/20/16 00:31 01:00 01:06 Temperature Pulse Rate Respiratory 20 22 Rate Blood Pressure 161/81 (mmHg) O2 Sat by Pulse Oximetry 12/20/16 12/20/16 12/20/16 01:07 01:40 02:00 Temperature Pulse Rate 116 124 Respiratory 17 14 14 Rate Blood Pressure 148/76 (mmHg) O2 Sat by Pulse 94 94 Oximetry 12/20/16 12/20/16 12/20/16 02:03 03:00 03:43 Temperature 98.8 F Pulse Rate 34 Respiratory 18 11 Rate Blood Pressure 156/90 107/47 (mmHg) O2 Sat by Pulse 92 Oximetry 12/20/16 12/20/16 12/20/16 04:00 05:00 05:40 Temperature Pulse Rate Respiratory 12 12 22 Rate Blood Pressure 99/43 101/53 (mmHg) O2 Sat by Pulse Oximetry 12/20/16 12/20/16 12/20/16 06:00 06:30 07:00 Temperature Pulse Rate Respiratory 19 11 Rate Blood Pressure 135/59 107/53 (mmHg) O2 Sat by Pulse Oximetry 12/20/16 12/20/16 12/20/16 07:55 08:00 08:32 Temperature 98.5 F Pulse Rate Respiratory 10 11 20 Rate Blood Pressure 147/57 122/56 (mmHg) O2 Sat by Pulse Oximetry 12/20/16 12/20/16 12/20/16 08:40 09:00 10:00 Temperature Pulse Rate Respiratory 12 13 12 Rate Blood Pressure 117/62 112/66 100/60 (mmHg) O2 Sat by Pulse Oximetry 12/20/16 12/20/16 12/20/16 11:00 11:02 12:00 Temperature 98.1 F Pulse Rate Respiratory 14 18 Rate Blood Pressure 114/62 (mmHg) O2 Sat by Pulse Oximetry 12/20/16 12/20/16 12/20/16 13:00 14:00 14:50 Temperature 100.9 F Pulse Rate Respiratory 16 17 Rate Blood Pressure 117/89 110/70 (mmHg) O2 Sat by Pulse Oximetry 12/20/16 14:53 Temperature Pulse Rate Respiratory 13 Rate Blood Pressure (mmHg) O2 Sat by Pulse Oximetry Oxygen Devices in Use Now: None Appearance: Elderly male lying in bed in NAD Ears/Nose/Mouth/Throat: Mucous Membranes Moist Neck: Trachea Midline Respiratory: Symmetrical Chest Expansion and Respiratory Effort, Clear to Auscultation Cardiovascular: NL Sounds; No Murmurs; No JVD, No Edema Abdominal: - - soft, mild tenderness, midline abdominal incision well- approximated without drainage Lymphatic: No Cervical Adenopathy Extremities: No Edema Neurological: Alert and Oriented x 3, NL Muscle Strength and Tone Nutrition: Taking PO's Result Diagrams: 12/20/16 06:00 12/20/16 06:00 Microbiology and Other Data: Microbiology 12/19/16 15:30 Nasal Screen MRSA (PCR)(JOSEPH) - Final Nasal Mrsa Negative Assess/Plan/Problems-Billing Assessment: Mr. Puente is an 86 yo male with a PMH of severe aortic stenosis, CVA, and hypertension who was admitted on 12/18/16 for resection of adenocarcinoma with colectomy. - Patient Problems (1) Colon cancer Comment: s/p colectomy on 12/18/16. Leukocytosis improving. Low grade temp to 100.9. Remains of sips of clears only. (2) Aortic stenosis Comment: Moderate to severe. Asymptomatic. Appears euvolemic. Mildly tachycardic at times, continue LR. (3) Delirium Comment: Pt very agitated and pulling at lines/tubes. Haldol available prn. (4) Hypertension Comment: SBP 140s. Continue hctz and losartan. (5) CAD (coronary artery disease) Comment: With hx of CVA. Resume plavix when approved per surgery. Continue atorvastatin. (6) Full code status (7) DVT prophylaxis Comment: Heparin SQ. Status and Disposition: Disposition per surgery.
[2016-12-20] MEDS: Atorvastatin* 20 MG TAB PO SCH (18:31)
[2016-12-20] MEDS: Ketorolac INJ* 15 MG/ML 1 ML VIAL IV PUSH SCH (19:25)
[2016-12-20] MEDS: Latanoprost 0.005%* 2.5 ml BTL BOTH EYES SCH (21:26)
[2016-12-21] MEDS: Ketorolac INJ* 15 MG/ML 1 ML VIAL IV PUSH SCH ×4 (00:15→21:23)
[2016-12-21 05:35] LABS: Hematocrit 23 % (42-52); Hemoglobin 7.4 g/dl (14.0-18.0); Mean Corpuscular HGB Conc 32 g/dl (31-36); Mean Corpuscular Hemoglobin 23 pg (27-31); Mean Platelet Volume 8 um3 (7.4-10.4); Red Blood Count 3.18 10^6/ul (4.0-5.4); Red Cell Distribution Width 19 % (10.5-15); White Blood Count 6.5 10^3/ul (3.5-10.8)
[2016-12-21 05:37] LABS: Comments Flag Yes; Mean Corpuscular Volume 73 fL (80-94)
[2016-12-21 05:49] LABS: BUN/Creatinine Ratio 17.4 (8-20); Calcium 7.9 mg/dL (8.6-10.3); EGFR African American 100.6 (>60); EGFR Non-African American 78.2 (>60); Magnesium 1.8 mg/dL (1.9-2.7); Phosphorus 2.4 mg/dL (2.5-5.0); Potassium 3.4 mmol/L (3.5-5.0)
[2016-12-21] MEDS: Heparin VIAL(*) 5000 UNITS/ML VIAL (FIVE THOUSAND) SUBCUT SCH ×3 (06:10→21:29)
[2016-12-21] MEDS: Timolol 0.5% OPTH.SOL* BTL BOTH EYES SCH (07:56)
[2016-12-21] MEDS: Hydrochlorothiazide TAB* 25 MG PO SCH (07:58)
[2016-12-21] MEDS: Tamsulosin CAP* 0.4 MG PO SCH (07:58)
[2016-12-21] MEDS: Losartan TAB* 25 MG PO SCH (07:58)
[2016-12-21] MEDS: Clopidogrel TAB* 75 MG PO SCH (07:58)
--- NOTE | 2016-12-21 08:55 | PN ---
Progress Note - Progress Note SOAP: Subjective: Pt seen and examined. Overnight events noted. [place] re-inserted yesterday and UO good. No nausea, positive appetite. some flatus. No BM Objective: Temp Pulse Resp BP Pulse Ox 98.8 F 103 16 143/60 98 12/21/16 08:00 12/21/16 08:00 12/21/16 08:00 12/21/16 08:00 12/21/16 08:00 a and o x3 at this time. NAD lungs clear, breaths shallow abdo: soft, ND, NT incision intact w/o redness, normoactive BS no calf tenderness labs noted: Laboratory Results - last 24 hr 12/21/16 12/21/16 12/21/16 05:23 05:23 05:23 WBC 6.5 RBC 3.18 L Hgb 7.4 L Hct 23 L MCV 73 L MCH 23 L MCHC 32 RDW 19 H Plt Count 213 MPV 8 Neut % (Auto) 78.3 Lymph % (Auto) 12.9 L Armstrong % (Auto) 7.5 Eos % (Auto) 1.2 Baso % (Auto) 0.1 Absolute Neuts (auto) 5.1 Absolute Lymphs (auto) 0.8 L Absolute Monos (auto) 0.5 Absolute Eos (auto) 0.1 Absolute Basos (auto) 0 Absolute Nucleated RBC 0 Nucleated RBC % 0 INR (Anticoag Therapy) 1.02 Sodium 138 Potassium 3.4 L Chloride 105 Carbon Dioxide 25 Anion Gap 8 BUN 16 Creatinine 0.92 Est GFR ( Amer) 100.6 Est GFR (Non-Af Amer) 78.2 BUN/Creatinine Ratio 17.4 Glucose 97 Calcium 7.9 L Phosphorus 2.4 L Magnesium 1.8 L PAth reviewed T3N0 Assessment: POD3 partial colectomy, resolving SIRS hypokalemia post-op anemia Plan replete K PT, OOB Incentive spirometer GI, DVT proph transferto floor advance diet
--- NOTE | 2016-12-21 13:42 | PN ---
Subjective Date of Service: 12/21/16 Interval History: Mr. Fagan denies complaint today and states that he is feeling well overall. He does have some minimal abdominal pain. He denies chest pain, SOB, or nausea. Family History: Unchanged from Admission Social History: Unchanged from Admission Past Medical History: Unchanged from Admission Objective Active Medications: Acetaminophen (Tylenol Tab*) 650 mg PO Q4H PRN Atorvastatin Calcium (Lipitor*) 20 mg PO 1700 [facility] Brimonidine Tartrate (Alphagan 0.2%) 1 drop BOTH EYES BID [facility] Clopidogrel Bisulfate (Plavix Tab*) 75 mg PO QAM [facility] Docusate Sodium (Colace Cap*) 100 mg PO BID PRN Haloperidol Lactate (Haldol Inj Iv/Im*) 2 mg IV SLOW PU Q4H PRN Heparin Sodium (Porcine) (Heparin Vial(*)) 5,000 units SUBCUT Q8HR [facility] Hydrochlorothiazide (Hydrodiuril Tab*) 25 mg PO QAM [facility] Famotidine 20 mg/ Sodium (Chloride) 102 mls @ 408 mls/hr IVPB BID [facility] Lactated Ringer's (Lactated Ringers 1000 Ml Bag*) 1,000 mls @ 50 mls/hr IV .per rate [facility] Ketorolac Tromethamine (Toradol Inj*) 15 mg IV PUSH Q6H [facility] Latanoprost (Xalatan 0.005%*) 1 drop BOTH EYES BEDTIME [facility] Losartan Potassium (Cozaar Tab*) 100 mg PO QAM [facility] Morphine Sulfate (Morphine Inj (Syringe)*) 2 mg IV Q2H PRN Ondansetron HCl (Zofran Inj*) 4 mg IV Q4H PRN Potassium Chloride (Klor-Con Liquid*) 20 meq PO ONCE ONE Tamsulosin HCl (Flomax Cap*) 0.4 mg PO DAILY [facility] Timolol Maleate (Timoptic 0.5% Opth*) 1 drop BOTH EYES QAM [facility] Vital Signs 12/20/16 12/20/16 12/20/16 14:00 14:50 14:53 Temperature 100.9 F Pulse Rate Respiratory 17 13 Rate Blood Pressure 110/70 (mmHg) O2 Sat by Pulse Oximetry 12/20/16 12/20/16 12/20/16 15:00 15:04 16:00 Temperature 99.9 F Pulse Rate Respiratory 13 15 13 Rate Blood Pressure 139/65 (mmHg) O2 Sat by Pulse Oximetry 12/20/16 12/20/16 12/20/16 17:00 18:00 19:00 Temperature Pulse Rate Respiratory 15 19 20 Rate Blood Pressure 109/59 (mmHg) O2 Sat by Pulse Oximetry 12/20/16 12/20/16 12/20/16 19:46 20:00 20:01 Temperature 99.6 F Pulse Rate Respiratory 17 20 Rate Blood Pressure 130/65 (mmHg) O2 Sat by Pulse Oximetry 12/20/16 12/20/16 12/20/16 21:00 22:00 22:24 Temperature Pulse Rate 111 110 91 Respiratory 18 17 14 Rate Blood Pressure 112/56 143/68 (mmHg) O2 Sat by Pulse 97 97 96 Oximetry 12/20/16 12/21/16 12/21/16 23:00 00:00 00:01 Temperature Pulse Rate 109 118 115 Respiratory 19 17 19 Rate Blood Pressure 128/71 123/55 (mmHg) O2 Sat by Pulse 96 96 97 Oximetry 12/21/16 12/21/16 12/21/16 01:00 02:00 03:00 Temperature Pulse Rate 120 98 92 Respiratory 20 15 14 Rate Blood Pressure 124/48 136/59 125/75 (mmHg) O2 Sat by Pulse 97 95 96 Oximetry 12/21/16 12/21/16 12/21/16 04:00 05:00 06:00 Temperature 99.5 F Pulse Rate 89 88 100 Respiratory 13 14 17 Rate Blood Pressure 115/64 103/55 113/59 (mmHg) O2 Sat by Pulse 96 97 84 Oximetry 12/21/16 12/21/16 12/21/16 07:00 08:00 09:00 Temperature 98.8 F Pulse Rate 88 103 98 Respiratory 12 17 14 Rate Blood Pressure 128/52 143/60 (mmHg) O2 Sat by Pulse 96 98 98 Oximetry 12/21/16 12/21/16 12/21/16 10:00 11:56 12:50 Temperature 98.1 F 99.2 F Pulse Rate 94 89 Respiratory 17 Rate Blood Pressure 120/54 (mmHg) O2 Sat by Pulse 100 98 Oximetry Oxygen Devices in Use Now: None Appearance: Elderly male sitting up in chair in NAD Eyes: No Scleral Icterus Ears/Nose/Mouth/Throat: Mucous Membranes Moist Neck: Trachea Midline Respiratory: Symmetrical Chest Expansion and Respiratory Effort, Clear to Auscultation Cardiovascular: NL Sounds; No Murmurs; No JVD, No Edema Abdominal: NL Sounds; No Tenderness; No Distention, - - midline abdominal incision well-approximated without erythema or drainage Lymphatic: No Cervical Adenopathy Extremities: No Edema Skin: No Rash or Ulcers Neurological: Alert and Oriented x 3, NL Muscle Strength and Tone Nutrition: Taking PO's Result Diagrams: 12/21/16 05:23 12/21/16 05:23 Microbiology and Other Data: Microbiology 12/19/16 15:30 Nasal Screen MRSA (PCR)(JOSEPH) - Final Nasal Mrsa Negative Assess/Plan/Problems-Billing Assessment: Mr. Puente is an 86 yo male with a PMH of severe aortic stenosis, CVA, and hypertension who was admitted on 12/18/16 for resection of adenocarcinoma with colectomy. - Patient Problems (1) Colon cancer Comment: s/p colectomy on 12/18/16. Leukocytosis resolved. No further fever. Diet advanced per surgery. (2) Aortic stenosis Comment: Moderate to severe. Asymptomatic. Appears euvolemic. Mildly tachycardic at times, d/c lactated ringers when taking adequate oral intake. (3) Delirium Comment: Pt intermittently agitated and pulling at lines/tubes. Haldol available prn. (4) Hypertension Comment: SBP 140s. Continue hctz and losartan. (5) CAD (coronary artery disease) Comment: With hx of CVA. Surgery has ok'd resuming plavix. Continue atorvastatin. (6) Full code status (7) DVT prophylaxis Comment: Heparin SQ. Status and Disposition: Disposition per surgery.
[2016-12-21] MEDS: Atorvastatin* 20 MG TAB PO SCH (17:31)
[2016-12-21] MEDS ORDERED: Famotidine IV* 10 MG/ML 2 ML (20 mg) ONE (20:43)
[2016-12-21] MEDS: Latanoprost 0.005%* 2.5 ml BTL BOTH EYES SCH (21:28)
[2016-12-22] MEDS: Ketorolac INJ* 15 MG/ML 1 ML VIAL IV PUSH SCH ×4 (02:27→20:00)
[2016-12-22] MEDS: Haloperidol INJ IV/IM* 5 MG/ML AMP IV SLOW PU PRN ×2 (03:40→19:57)
[2016-12-22] MEDS: Heparin VIAL(*) 5000 UNITS/ML VIAL (FIVE THOUSAND) SUBCUT SCH ×3 (05:58→22:19)
[2016-12-22] MEDS: Losartan TAB* 25 MG PO SCH (08:37)
[2016-12-22] MEDS: Tamsulosin CAP* 0.4 MG PO SCH (08:37)
[2016-12-22] MEDS: Hydrochlorothiazide TAB* 25 MG PO SCH (08:37)
[2016-12-22] MEDS: Timolol 0.5% OPTH.SOL* BTL BOTH EYES SCH (08:38)
[2016-12-22] MEDS: Clopidogrel TAB* 75 MG PO SCH (08:38)
--- NOTE | 2016-12-22 10:29 | PN ---
Progress Note - Progress Note Note: Surgery Mr. Puente reports he has some pain with coughing. He reports, and nursing confirms, that he has had a BM. Vital Signs 12/21/16 12/21/16 12/21/16 11:56 12:50 16:09 Temperature 98.1 F 99.2 F 97.6 F Pulse Rate 89 103 Respiratory 17 19 Rate Blood Pressure 120/54 115/47 (mmHg) O2 Sat by Pulse 98 Oximetry 12/21/16 12/21/16 12/21/16 16:23 16:49 19:15 Temperature 99 F Pulse Rate Respiratory 19 Rate Blood Pressure (mmHg) O2 Sat by Pulse 98 95 Oximetry 12/21/16 12/21/16 12/22/16 19:21 23:42 04:00 Temperature 98.0 F 97.2 F 97.6 F Pulse Rate 111 111 114 Respiratory 19 16 Rate Blood Pressure 117/57 132/87 155/80 (mmHg) O2 Sat by Pulse 97 97 Oximetry 12/22/16 12/22/16 07:57 08:00 Temperature 99.1 F Pulse Rate 104 Respiratory 16 16 Rate Blood Pressure 137/64 (mmHg) O2 Sat by Pulse 98 98 Oximetry Abd: good BS, distended, non-tender except for mild brian-incisional pain. Incision: clean and dry, no signs infection Intake & Output 12/21/16 12/22/16 12/22/16 22:59 06:59 14:59 Intake Total 832 402 Output Total 600 650 Balance 232 -248 Intake: IV Fluids 592 402 LR 592 402 Oral 240 0 Output: [place] 550 650 Liquid Stool 50 Other: # Bowel Movements 1 Estimated Stool Amount Small Small A/P: POD#4 s/p colectomy for cancer. Doing well, can advance diet as tolerated. [facility]
--- NOTE | 2016-12-22 10:41 | PN ---
Subjective Date of Service: 12/22/16 Interval History: Mr. Puente reports feeling quite well today. He only has abdominal pain when he coughs but feels well otherwise. He has had a bowel movement and is tolerating oral intake well. He denies other complaint including chest pain or SOB. Family History: Unchanged from Admission Social History: Unchanged from Admission Past Medical History: Unchanged from Admission Objective Active Medications: Acetaminophen (Tylenol Tab*) 650 mg PO Q4H PRN Atorvastatin Calcium (Lipitor*) 20 mg PO 1700 [facility] Brimonidine Tartrate (Alphagan 0.2%) 1 drop BOTH EYES BID [facility] Clopidogrel Bisulfate (Plavix Tab*) 75 mg PO QAM [facility] Docusate Sodium (Colace Cap*) 100 mg PO BID PRN Haloperidol Lactate (Haldol Inj Iv/Im*) 2 mg IV SLOW PU Q4H PRN Heparin Sodium (Porcine) (Heparin Vial(*)) 5,000 units SUBCUT Q8HR [facility] Hydrochlorothiazide (Hydrodiuril Tab*) 25 mg PO QAM [facility] Famotidine 20 mg/ Sodium (Chloride) 102 mls @ 408 mls/hr IVPB BID [facility] Lactated Ringer's (Lactated Ringers 1000 Ml Bag*) 1,000 mls @ 50 mls/hr IV .per rate [facility] Ketorolac Tromethamine (Toradol Inj*) 15 mg IV PUSH Q6H [facility] Latanoprost (Xalatan 0.005%*) 1 drop BOTH EYES BEDTIME [facility] Losartan Potassium (Cozaar Tab*) 100 mg PO QAM [facility] Morphine Sulfate (Morphine Inj (Syringe)*) 2 mg IV Q2H PRN Ondansetron HCl (Zofran Inj*) 4 mg IV Q4H PRN Potassium Chloride (Klor-Con Liquid*) 20 meq PO ONCE ONE Tamsulosin HCl (Flomax Cap*) 0.4 mg PO DAILY [facility] Timolol Maleate (Timoptic 0.5% Opth*) 1 drop BOTH EYES QAM [facility] Vital Signs 12/21/16 12/21/16 12/21/16 11:56 12:50 16:09 Temperature 98.1 F 99.2 F 97.6 F Pulse Rate 89 103 Respiratory 17 19 Rate Blood Pressure 120/54 115/47 (mmHg) O2 Sat by Pulse 98 Oximetry 12/21/16 12/21/16 12/21/16 16:23 16:49 19:15 Temperature 99 F Pulse Rate Respiratory 19 Rate Blood Pressure (mmHg) O2 Sat by Pulse 98 95 Oximetry 12/21/16 12/21/16 12/22/16 19:21 23:42 04:00 Temperature 98.0 F 97.2 F 97.6 F Pulse Rate 111 111 114 Respiratory 19 16 Rate Blood Pressure 117/57 132/87 155/80 (mmHg) O2 Sat by Pulse 97 97 Oximetry 12/22/16 12/22/16 07:57 08:00 Temperature 99.1 F Pulse Rate 104 Respiratory 16 16 Rate Blood Pressure 137/64 (mmHg) O2 Sat by Pulse 98 98 Oximetry Oxygen Devices in Use Now: None Appearance: Elderly male sitting up in chair in NAD Eyes: No Scleral Icterus Ears/Nose/Mouth/Throat: Mucous Membranes Moist Neck: Trachea Midline Respiratory: Symmetrical Chest Expansion and Respiratory Effort, Clear to Auscultation Cardiovascular: NL Sounds; No Murmurs; No JVD, No Edema Abdominal: NL Sounds; No Tenderness; No Distention Lymphatic: No Cervical Adenopathy Extremities: No Edema Skin: No Rash or Ulcers Neurological: Alert and Oriented x 3, NL Muscle Strength and Tone Nutrition: Taking PO's Result Diagrams: 12/21/16 05:23 12/21/16 05:23 Microbiology and Other Data: Microbiology 12/19/16 15:30 Nasal Screen MRSA (PCR)(JOSEPH) - Final Nasal Mrsa Negative Assess/Plan/Problems-Billing Assessment: Mr. Puente is an 86 yo male with a PMH of severe aortic stenosis, CVA, and hypertension who was admitted on 12/18/16 for resection of adenocarcinoma with colectomy. - Patient Problems (1) Colon cancer Comment: s/p colectomy on 12/18/16. Leukocytosis resolved. No further fever. Has had BM. Diet advanced per surgery. (2) Aortic stenosis Comment: Moderate to severe. Asymptomatic. Appears euvolemic. Mildly tachycardic at times, d/c lactated ringers when taking adequate oral intake. (3) Delirium Comment: Appears to have resolved. Pt was intermittently agitated and pulling at lines/tubes. Haldol available prn. (4) Hypertension Comment: SBP 140s. Hold hctz, continue losartan. (5) CAD (coronary artery disease) Comment: With hx of CVA. Surgery has ok'd resuming plavix. Continue atorvastatin. (6) Full code status (7) DVT prophylaxis Comment: Heparin SQ. Status and Disposition: Disposition per surgery.
[2016-12-22] MEDS ORDERED: Potassium Chloride LIQUID* 20 MEQ PACKET PO ONE (10:51)
[2016-12-22 11:14] LABS: Hematocrit 26 % (42-52); Hemoglobin 8.3 g/dl (14.0-18.0); Mean Corpuscular HGB Conc 32 g/dl (31-36); Mean Corpuscular Hemoglobin 23 pg (27-31); Mean Platelet Volume 8 um3 (7.4-10.4); Red Blood Count 3.62 10^6/ul (4.0-5.4); Red Cell Distribution Width 18 % (10.5-15); White Blood Count 5.7 10^3/ul (3.5-10.8)
[2016-12-22 11:17] LABS: Comments Flag Yes; Mean Corpuscular Volume 72 fL (80-94)
[2016-12-22] MEDS: Atorvastatin* 20 MG TAB PO SCH (18:10)
[2016-12-22] MEDS: Latanoprost 0.005%* 2.5 ml BTL BOTH EYES SCH (21:07)
[2016-12-23] MEDS: Heparin VIAL(*) 5000 UNITS/ML VIAL (FIVE THOUSAND) SUBCUT SCH ×3 (05:32→23:42)
[2016-12-23 06:02] LABS: Hematocrit 25 % (42-52); Mean Corpuscular HGB Conc 32 g/dl (31-36); Mean Corpuscular Hemoglobin 23 pg (27-31); Mean Platelet Volume 8 um3 (7.4-10.4); Red Blood Count 3.52 10^6/ul (4.0-5.4); Red Cell Distribution Width 18 % (10.5-15); White Blood Count 5.7 10^3/ul (3.5-10.8)
[2016-12-23 06:04] LABS: Comments Flag Yes
[2016-12-23 06:05] LABS: Mean Corpuscular Volume 72 fL (80-94)
[2016-12-23 06:16] LABS: BUN/Creatinine Ratio 14.2 (8-20); Calcium 8.2 mg/dL (8.6-10.3); EGFR Non-African American 57.5 (>60); Magnesium 1.7 mg/dL (1.9-2.7); Potassium 3.5 mmol/L (3.5-5.0)
[2016-12-23] MEDS ORDERED: Magnesium Sulfate 1 GM IV* 1 GM/100 ML BAG IV ONE (08:24)
--- NOTE | 2016-12-23 08:27 | PN ---
Progress Note - Progress Note SOAP: Subjective: pt seen and examined. Now on surg floor. only complaint is weakness. no nausea, positive appetite, positive flatus, BM Objective: Temp Pulse Resp BP SpO2 FiO2 98.8 F 90 16 125/59 97 12/23/16 07:23 12/23/16 07:23 12/23/16 07:23 12/23/16 07:23 12/23/16 07:23 uo okay lungs: shallow breaths abdo: soft/ND/NT, ecchymotic no calf tenderness labs noted; creat up to 1.2 Assessment: POD5 partial colectomy, weak Plan: encourage PO labs in am possible rehab /short term admission change IVF
[2016-12-23] MEDS: D5W NS 0.9% 20Meq KCL 1000 ML* 1,000 ML IV SCH (09:25)
[2016-12-23] MEDS: Clopidogrel TAB* 75 MG PO SCH (09:25)
[2016-12-23] MEDS: Tamsulosin CAP* 0.4 MG PO SCH (09:26)
[2016-12-23] MEDS: Timolol 0.5% OPTH.SOL* BTL BOTH EYES SCH (09:37)
[2016-12-23] MEDS: Losartan TAB* 25 MG PO SCH (10:44)
--- NOTE | 2016-12-23 16:53 | PN ---
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 Patient had prior CVA and mod to severe , hospitalists were asked to co-manage. Patient developed what looked like post-op delirium which has since resolved. He remains quite weak postoperatively. No additional complications Objective Active Medications: Acetaminophen (Tylenol Tab*) 650 mg PO Q4H PRN PRN Reason: Pain Or Temperature >101 F Atorvastatin Calcium (Lipitor*) 20 mg PO 1700 [facility] Last Admin: 12/22/16 18:10 Dose: 20 mg Brimonidine Tartrate (Alphagan 0.2%) 1 drop BOTH EYES BID [facility] Last Admin: 12/23/16 09:26 Dose: 1 drop Clopidogrel Bisulfate (Plavix Tab*) 75 mg PO QAM [facility] Last Admin: 12/23/16 09:25 Dose: 75 mg Docusate Sodium (Colace Cap*) 100 mg PO BID PRN PRN Reason: CONSTIPATION Haloperidol Lactate (Haldol Inj Iv/Im*) 2 mg IV SLOW PU Q4H PRN PRN Reason: AGITATION Last Admin: 12/22/16 19:57 Dose: 2 mg Heparin Sodium (Porcine) (Heparin Vial(*)) 5,000 units SUBCUT Q8HR [facility] Last Admin: 12/23/16 15:00 Dose: 5,000 units Famotidine 20 mg/ Sodium (Chloride) 102 mls @ 408 mls/hr IVPB BID [facility] Last Admin: 12/23/16 09:25 Dose: 408 mls/hr Potassium Chloride/Dextrose (D5w Ns 0.9% 20meq Kcl 1000 Ml*) 1,000 mls @ 50 mls /hr IV PER RATE [facility] Last Admin: 12/23/16 09:25 Dose: 50 mls/hr Latanoprost (Xalatan 0.005%*) 1 drop BOTH EYES BEDTIME [facility] PRN Reason: Protocol Last Admin: 12/22/16 21:07 Dose: 1 drop Losartan Potassium (Cozaar Tab*) 100 mg PO QAM [facility] Last Admin: 12/23/16 10:44 Dose: 100 mg Morphine Sulfate (Morphine Inj (Syringe)*) 2 mg IV Q2H PRN PRN Reason: PAIN Last Admin: 12/20/16 05:40 Dose: 2 mg Ondansetron HCl (Zofran Inj*) 4 mg IV Q4H PRN PRN Reason: NAUSEA/VOMITING Tamsulosin HCl (Flomax Cap*) 0.4 mg PO DAILY [facility] Last Admin: 12/23/16 09:26 Dose: 0.4 mg Timolol Maleate (Timoptic 0.5% Opth*) 1 drop BOTH EYES QAM [facility] Last Admin: 12/23/16 09:37 Dose: 1 drop Vital Signs: Temp Pulse Resp BP Pulse Ox 97.6 F 96 16 124/58 98 12/23/16 15:31 12/23/16 15:31 12/23/16 15:31 12/23/16 15:31 12/23/16 15:31 Oxygen Devices in Use Now: None Appearance: Elderly gentleman resting comfortably, fully exam not completed Result Diagrams: 12/23/16 05:44 12/23/16 05:44 Microbiology and Other Data: Microbiology 12/19/16 15:30 Nasal Screen MRSA (PCR)(JOSEPH) - Final Nasal Mrsa Negative Assess/Plan/Problems-Billing Assessment: Mr. Puente is an 86 yo male with a PMH of severe aortic stenosis, CVA, and hypertension who was admitted on 12/18/16 for resection of adenocarcinoma with partial colectomy. - Patient Problems (1) Colon cancer Comment: s/p colectomy POD #5. Further management per surgery Currently tolerating a low residue diet (2) Aortic stenosis Comment: Moderate to severe. Asymptomatic. Appears mildly dry, cont IVF (3) JOMAR (acute kidney injury) Comment: Cr shanti to 1.2 today Hold losartan Cont IVF and monitor closely (4) CAD (coronary artery disease) Comment: Plavix has been resumed postoperatively Cont statin therapy (5) Delirium Comment: Patient appears to have developed acute postop delirium which has mostly resolved (6) History of CVA (cerebrovascular accident) Comment: Residual left sided weakness Plavix has been restarted (7) Hypertension Comment: Mostly normotensive Currently holding losartan and HCTZ in the setting of JOMAR (8) DVT prophylaxis Comment: Heparin SQ. (9) Full code status (10) Hypokalemia Comment: Resolved Status and Disposition: Disposition per surgery, appears patient would likely benefit FERNANDO. Hospitalists will continue to follow along
[2016-12-23] MEDS: Atorvastatin* 20 MG TAB PO SCH (18:09)
[2016-12-23] MEDS ORDERED: Famotidine IV* 10 MG/ML 2 ML (20 mg) ONE (20:50)
[2016-12-23] MEDS: Latanoprost 0.005%* 2.5 ml BTL BOTH EYES SCH (23:44)
[2016-12-24] MEDS: Heparin VIAL(*) 5000 UNITS/ML VIAL (FIVE THOUSAND) SUBCUT SCH ×3 (05:55→21:59)
[2016-12-24] MEDS: D5W NS 0.9% 20Meq KCL 1000 ML* 1,000 ML IV SCH (06:02)
[2016-12-24 06:17] LABS: BUN/Creatinine Ratio 16.1 (8-20); Calcium 7.9 mg/dL (8.6-10.3); EGFR African American 80.1 (>60); EGFR Non-African American 62.3 (>60); Magnesium 1.7 mg/dL (1.9-2.7); Potassium 3.5 mmol/L (3.5-5.0)
[2016-12-24] MEDS ORDERED: Magnesium Sulf 4 GM/100 ML IV* 4,000 MG/100 ML BAG IVPB ONE (06:58)
[2016-12-24] MEDS: Tamsulosin CAP* 0.4 MG PO SCH (08:19)
[2016-12-24] MEDS: Clopidogrel TAB* 75 MG PO SCH (08:19)
[2016-12-24] MEDS: Timolol 0.5% OPTH.SOL* BTL BOTH EYES SCH (08:23)
--- NOTE | 2016-12-24 10:23 | PN ---
Progress Note - Progress Note SOAP: Subjective: Reports doing much better today. Tolerating low residue diet, moving his bowels. Denies abdominal pain, N/V, fever or chills. Objective: Awake and alert, sitting on chair watching TV, in NAD. VSS, afebrile Lungs CTA bilat. Heart RRR, no murmurs. Abdomen soft, NT, ND. Incision clean, dry and intact. [place] with clear urine, I/O reviewed. Ext. no edema Assessment: POD#5, s/p laparotomy with partial left colectomy, doing well. Plan: Continue ambulating as tolerated, still feels weak on his feet, will obtain a PT eval. Probable STR arrangement today or tomorrow. Clinically stable, post-op delirium resolved. Check labs in AM
--- NOTE | 2016-12-24 14:25 | PN ---
Subjective Date of Service: 12/24/16 Interval History: Patient offers no new complaints. Minimal pain. Tolerating low residue diet. Reg BMs. Objective Active Medications: Acetaminophen (Tylenol Tab*) 650 mg PO Q4H PRN PRN Reason: Pain Or Temperature >101 F Atorvastatin Calcium (Lipitor*) 20 mg PO 1700 [facility] Last Admin: 12/23/16 18:09 Dose: 20 mg Brimonidine Tartrate (Alphagan 0.2%) 1 drop BOTH EYES BID [facility] Last Admin: 12/24/16 08:23 Dose: 1 drop Clopidogrel Bisulfate (Plavix Tab*) 75 mg PO QAM [facility] Last Admin: 12/24/16 08:19 Dose: 75 mg Docusate Sodium (Colace Cap*) 100 mg PO BID PRN PRN Reason: CONSTIPATION Haloperidol Lactate (Haldol Inj Iv/Im*) 2 mg IV SLOW PU Q4H PRN PRN Reason: AGITATION Last Admin: 12/22/16 19:57 Dose: 2 mg Heparin Sodium (Porcine) (Heparin Vial(*)) 5,000 units SUBCUT Q8HR [facility] Last Admin: 12/24/16 05:55 Dose: 5,000 units Famotidine 20 mg/ Sodium (Chloride) 102 mls @ 408 mls/hr IVPB BID [facility] Last Admin: 12/24/16 08:26 Dose: 408 mls/hr Latanoprost (Xalatan 0.005%*) 1 drop BOTH EYES BEDTIME [facility] PRN Reason: Protocol Last Admin: 12/23/16 23:44 Dose: Not Given Morphine Sulfate (Morphine Inj (Syringe)*) 2 mg IV Q2H PRN PRN Reason: PAIN Last Admin: 12/20/16 05:40 Dose: 2 mg Ondansetron HCl (Zofran Inj*) 4 mg IV Q4H PRN PRN Reason: NAUSEA/VOMITING Tamsulosin HCl (Flomax Cap*) 0.4 mg PO DAILY [facility] Last Admin: 12/24/16 08:19 Dose: 0.4 mg Timolol Maleate (Timoptic 0.5% Opth*) 1 drop BOTH EYES QAM [facility] Last Admin: 12/24/16 08:23 Dose: 1 drop Vital Signs: Temp Pulse Resp BP Pulse Ox 97.9 F 80 18 103/53 99 12/24/16 11:50 12/24/16 11:50 12/24/16 11:50 12/24/16 11:50 12/24/16 11:50 Oxygen Devices in Use Now: None Appearance: Well appearing elderly gentleman in NAD Respiratory: Symmetrical Chest Expansion and Respiratory Effort, Clear to Auscultation Cardiovascular: RRR, - - significant murmur appreciated Abdominal: NL Sounds; No Tenderness; No Distention Extremities: No Edema Skin: No Rash or Ulcers Neurological: Alert and Oriented x 3 Result Diagrams: 12/23/16 05:44 12/24/16 05:38 Microbiology and Other Data: Microbiology 12/19/16 15:30 Nasal Screen MRSA (PCR)(JOSEPH) - Final Nasal Mrsa Negative Assess/Plan/Problems-Billing Assessment: Mr. Puenet is an 86 yo male with a PMH of severe aortic stenosis, CVA, and hypertension who was admitted on 12/18/16 for resection of adenocarcinoma with partial colectomy. 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 Asymptomatic. Now appears euvolemic, IVF discontinued (3) JOMAR (acute kidney injury) Comment: Improved Holding losartan Repeat BMP tomorrow (4) CAD (coronary artery disease) Comment: Plavix has been resumed postoperatively Cont statin therapy (5) Delirium Comment: Patient appears to have developed acute postop delirium which has mostly resolved (6) History of CVA (cerebrovascular accident) Comment: Residual left sided weakness Plavix has been restarted (7) Hypertension Comment: Mostly normotensive Currently holding losartan and HCTZ in the setting of JOMRA (8) DVT prophylaxis Comment: Heparin SQ. (9) Full code status (10) Hypokalemia Comment: Resolved Status and Disposition: Disposition per surgery, appears patient would likely benefit FERNANDO. Hospitalists will continue to follow along
[2016-12-24] MEDS: Atorvastatin* 20 MG TAB PO SCH (20:44)
[2016-12-24] MEDS: Latanoprost 0.005%* 2.5 ml BTL BOTH EYES SCH (21:01)
[2016-12-25] MEDS: Heparin VIAL(*) 5000 UNITS/ML VIAL (FIVE THOUSAND) SUBCUT SCH (06:05)
[2016-12-25 06:22] LABS: BUN/Creatinine Ratio 21.7 (8-20); Calcium 8.2 mg/dL (8.6-10.3); EGFR African American 113.2 (>60); EGFR Non-African American 88.1 (>60); Potassium 3.4 mmol/L (3.5-5.0)
[2016-12-25] MEDS ORDERED: Potassium Chlor TAB* 20 MEQ TAB.ER PO ONE (08:06)
[2016-12-25] MEDS: Clopidogrel TAB* 75 MG PO SCH (08:58)
[2016-12-25] MEDS: Tamsulosin CAP* 0.4 MG PO SCH (08:58)
[2016-12-25] MEDS: Timolol 0.5% OPTH.SOL* BTL BOTH EYES SCH (09:09)
--- NOTE | 2016-12-25 10:22 | PN ---
Progress Note - Progress Note SOAP: Subjective: Doing well, no complaints. Voiding OK after lopez removed. Tolerating diet. Objective: VSS, afebrile Awake and alert, comfortable in chair, in NAD Abdomen soft, NT, ND. Incision C/D/I. Ext. no edema I/O reviewed Assessment: Doing well, s/p laft colectomy Plan: Plan to d/c to [facility] [place] rehab today. F/U in office next week.
[2016-12-25 12:29] VITALS: BP 110/52
--- NOTE | 2016-12-25 13:40 | DS ---
CC: Dr. Carmelo Davis; Dr. Guille Gutierrez; [facility] DISCHARGE SUMMARY: DATE OF ADMISSION: 12/18/16 DATE OF DISCHARGE: 12/25/16 HOSPITAL COURSE: Mr. Puente is an 86-year-old gentleman with history of anemia and diagnosis of a bleeding adenocarcinoma at the descending colon. He worked up as an outpatient including cardiolo gy evaluation. He was then taken to the operating room on the day of admission having had his bowel prepped and underwent an open partial colectomy. Pathology was consistent with T3N0 disease. The patient was transferred to the PACU in the early postoperative course. He had an A line in. He was treated with narcotics. The hospital service was consulted and followed along. By postoperative day #1, the patient did have some confusion. He had fair urine output. Vital sign s were fine with the exception of tachycardia. The patient was complicated pain management in those early postoperative times. He did require Haldol and the decision on postoperative day #1 was to k eep the patient in the ICU for lack of step-down unit. There, he stayed for 2 days, slowly improved . We did get him out of bed but his diet was slowly advanced given the confusion and the concern fo r both fall risk and aspiration risk. We moved slowly with Mr. Puente. By postoperative day #3, the patient was transferred to the floor. It should be noted that mabel honeycutt did require a [place] reinsertion after he was unable to completely empty his bladder when the [place] came out on postoperative day #2. On the floor, the patient improved with less confusion. He was able to get up and only shuffle in v ana cristina short steps. Physical Therapy was on board and it did evaluate [facility] This was refused given the patient's inability to partake in a significant amount o f time per day of rehabilitation. His diet was advanced by postoperative day #5 and started on a lo w residue diet. The patient was tolerating the p.o. diet and his IV fluids were ultimately turned o ff. He was restarted on his Plavix on 12/21/16 and he is back on his home medications for planned d ischarge to [facility] [place]. On the day of discharge, the patient was examined. He was afebrile. Vital signs are stable. Urine output good. A [place] catheter was removed on postoperative day #6 and the patient did void using c ommode. He has been having small to medium bowel movements. He is alert. He is oriented x3. He i s of course hard of hearing. He has no complaints other than weakness that is more global and not f ocal. His lungs are clear to auscultation bilaterally. Abdomen is soft, nondistended, nontender. Skin melly intact. We will leave these in. Extremities within normal limits without pitting edema or calf tenderness. Labs were reviewed throughout the entire course of his stay. However, there was no new CBC within l ast 24 hours but there was a metabolic panel which showed improvement of his creatinine that had a m ild bump. The patient will be discharged to the [facility] with all his preoperative medications including P lavix. We will stop pain medication. He will go with skin melly that can be removed in my office or at their facility in 2 to 4 days. I have discussed this with the patient and his . They have no additional questions. The intent ion was that patient would go home postoperatively, but with his deconditioning and 7-day stay with history of CVA and age of 86, I do not think it is unreasonable for the patient for short-term facil ity and I do believe as he walked better he will not be there very long. [id number]/[facility] #: [id number]
--- NOTE | 2016-12-25 16:53 | PN ---
Hospitalist Progress Note Patient was discharged by general surgery team earlier today to [facility] at [facility]. Reviewed labs, vitals, and nursing notes. Patient discharged prior to full exam. No medical recommendations at discharge. Vital Signs: Temp Pulse Resp BP Pulse Ox 98.1 F 81 16 110/52 99 12/25/16 11:21 12/25/16 11:21 12/25/16 11:21 12/25/16 11:21 12/25/16 11:21
== END 2016-12-25 14:25 | DRG 330 ==
LOC: AA 06:32 → ICU 13:39 → SSU 12-21 13:59
PROVIDERS: ADMIT Surgery; ATTEND Surgery
PROC: 0DBN0ZZ Excision of Sigmoid Colon, Open Approach (ICD-10-PCS; 2016-12-18)
PROC: 0DBM0ZZ Excision of Descending Colon, Open Approach (ICD-10-PCS; principal; 2016-12-18 07:45)
DX: C18.6 Malignant neoplasm of descending colon (principal); N17.9 Acute kidney failure, unspecified; F05 Delirium due to known physiological condition; R65.10 Systemic inflammatory response syndrome (SIRS) of non-infectious origin without acute organ dysfunction; I69.359 Hemiplegia and hemiparesis following cerebral infarction affecting unspecified side; I10 Essential (primary) hypertension; I35.0 Nonrheumatic aortic (valve) stenosis; I25.10 Atherosclerotic heart disease of native coronary artery without angina pectoris; R00.0 Tachycardia, unspecified; E87.6 Hypokalemia; H91.92 Unspecified hearing loss, left ear; R26.81 Unsteadiness on feet; K63.9 Disease of intestine, unspecified; Z98.49 Cataract extraction status, unspecified eye; Z83.3 Family history of diabetes mellitus; Z80.6 Family history of leukemia; Z84.89 Family history of other specified conditions; Z82.49 Family history of ischemic heart disease and other diseases of the circulatory system; Z79.02 Long term (current) use of antithrombotics/antiplatelets; I69.398 Other sequelae of cerebral infarction; D64.9 Anemia, unspecified; Z85.828 Personal history of other malignant neoplasm of skin
CPT/HCPCS: 36415; 80048; 83735; 84100; 85025; 85610; 86850; 86900; 86901; 87641; 88307; 88309; 94760; A9270-GY; C1776; J0780; J1100; J1335; J1630; J1644; J1885; J2250; J2270; J2405; J2704; J3010; J3480

== ENCOUNTER 2017-12-30 13:49 | Emergency (ER) | payer MEDICARE ==
--- OUTSIDE RECORDS SUMMARY | 2017-12-30 13:55 | XMS REPORT ---
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 Nu Bipin Puente [id number] PayID: [id number] 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 Active Family History Date Family Member(s) Problem(s) Comments General Heart Disease 2 brothers General Deep Venous Thrombosis (DVT) Brother Father Leukemia Mother Diabetes Social History Type Date Description Comments Marital Status Lives With Occupation Retired Cigarette Use Never Smoked Cigarettes ETOH Use Denies alcohol use Smoking Patient has never smoked Recreational Drug Use Denies Drug Use Daily Caffeine Consumes on average 1 cup of 1/2 to 1 cup regular coffee per day Daily Caffeine Soda 1/2 8 oz Luci Mist and Creme Soda rarely Exercise Type/Frequency Treadmill walking at least 1-2 minutes. General Hx Text Do you follow a special diet: no Do you have problems with snoring, daytime fatigue: No snoring , daytime fatigue when getting up to walk. Allergies, Adverse Reactions, Alerts Date Description Reaction Status Severity Comments 02/24/2014 NKDA active Medications Medication Date Status Form Strength Qnty SIG Indications Ordering Provider Baclofen 12/22 Active Tablets 10mg 90tab 1 po qam G82.22 Jose Muñoz /2017 s for 1 wk Max, then 1 M.D. bid pc for 1 wk then 1 tid pc Plavix 08/07 Active Tablets 75mg 90tab 1 by Jose Muñoz /2012 s mouth Max, every day M.DMik Folic Acid 02/24 Active Tablets 1mg 90tab 1 by Nir /2011 s mouth Daisha every day MD Sonny Piedra Active Solution 0.004% 1 drop in Unknown /0000 both eyes qhs Losartan Active Tablets 100mg 30tab 1 by Unknown Potassium /0000 s mouth every day Timolol Maleate Active Solution 0.5% 3unit 1 gtt Unknown /0000 s right eye Qam Fluvastatin Active Capsules 40mg 1 by Unknown Sodium /0000 mouth every night Centrum Silver Active Tablets Adult 50 1 by Unknown Adult 50+ /0000 mouth every day Brimonidine Active Solution 0.2% twice Unknown Tartrate /0000 daily Hydrochlorothiazi Active Tablets 25mg 1 by Unknown de /0000 mouth every day Vitamin B12 00 Active Tablets ER 1 by Unknown /0000 mouth every day Prednisolone 00 Active Suspension 1% 1 drop Unknown Acetate /0000 each eye at 7am and 4pm Metronidazole 12/02 Hx Tablets 500mg 3tabs 1 tablet Vijaya /2016 by mouth B. 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 - 7pm on [place], 02/1012/17/16 and 2 tabs at 7am 12/18/16 Colyte With 12/02 Hx Solution 240gm 4000m take as Vijaya Flavor Packs /2016 Rec l directed B. - on [place], 02/1012/17/16 Plavix 07/23 Hx Tablets 75mg 30tab 1 by Mehreen Ortiz herber Brennan, - every day M.DMik 08/17 Plavix 05/21 Hx Tablets 75mg 90tab 1 po qd Mehreen Ortiz herber Brennan - M.DMik 08/17 Lescol XL Hx Tablets ER 80mg 90tab 1 po hs Unknown /0000 24HR s - 02/01 Hyzaar Hx Tablets 100-25mg 30tab 1 po qd Unknown /0000 s - 02/24 Hydrochlorothiazi Hx Tablets 25mg 90tab 1 by Unknown de /0000 s mouth - every day 02/01 Medications Administered in Office Medication Date Status Form Strength Qnty SIG Indications Ordering Provider Inj, Administered Injection Guille Muñoz Regadenoson, 017 DO Matt 0.1 MG FACC Technetium TC Administered Injection Guille SMik 99M 017 DO Matt Tetrofosmin, FACC Per Unit Dose Up To 40 Millicuries Vital Signs Date Vital Result Comment 12/22/2017 Height 64 inches 5'4" Weight 142.00 lb Heart Rate 84 /min BP Systolic 124 mmHg BP Diastolic 76 mmHg Respiratory Rate 16 /min BMI (Body Mass Index) 24.4 kg/m2 06/19/2017 Height 64 inches 5'4" Weight 142.00 lb Heart Rate 84 /min BP Systolic Sitting 130 mmHg BP Diastolic Sitting 70 mmHg Respiratory Rate 16 /min BMI (Body Mass Index) 24.4 kg/m2 02/11/2017 Height 64 inches 5'4" Weight 142.00 lb Heart Rate 85 /min BP Systolic Sitting 128 mmHg BP Diastolic Sitting 80 mmHg Respiratory Rate 15 /min BMI (Body Mass Index) 24.4 kg/m2 01/06/2017 Heart Rate 88 /min BP Systolic 128 mmHg BP Diastolic 70 mmHg Respiratory Rate 16 /min Body Temperature 98.6 F 12/02/2016 Height 64.5 inches 5'4.50" Weight 146.00 lb Heart Rate 82 /min BP Systolic 120 mmHg BP Diastolic 78 mmHg Respiratory Rate 16 /min Body Temperature 98.3 F BMI (Body Mass Index) 24.7 kg/m2 11/07/2016 Height 64.5 inches 5'4.50" Weight 148.00 lb with shoes Heart Rate 79 /min BP Systolic Sitting 128 mmHg Lue reg cuff BP Diastolic Sitting 74 mmHg Lue reg cuff BP Systolic Standing 134 mmHg Lue reg cuff BP Diastolic Standing 80 mmHg Lue reg cuff BMI (Body Mass Index) 25.0 kg/m2 10/28/2016 Height 64.5 inches 5'4.50" Weight 148.00 lb with shoes Heart Rate 64 /min BP Systolic 120 mmHg Rue reg cuff BP Diastolic 70 mmHg Rue reg cuff BP Systolic Sitting 134 mmHg Lue reg cuff BP Diastolic Sitting 70 mmHg Lue reg cuff BP Systolic Standing 124 mmHg Lue reg cuff BP Diastolic Standing 70 mmHg Lue reg cuff Respiratory Rate 17 /min BMI (Body Mass Index) 25.0 kg/m2 Ejection Fraction 60-65% date 11/14/2014 ECHO 10/07/2016 Height 68 inches 5'8" Weight 142.00 lb Heart Rate 90 /min BP Systolic 138 mmHg BP Diastolic 80 mmHg Respiratory Rate 18 /min Body Temperature 99.7 F BMI (Body Mass Index) 21.6 kg/m2 12/21/2015 Height 68 inches 5'8" Weight 154.00 lb Heart Rate 84 /min BP Systolic Sitting 144 mmHg BP Diastolic Sitting 76 mmHg Respiratory Rate 16 /min BMI (Body Mass Index) 23.4 kg/m2 02/28/2015 Height 68 inches 5'8" Weight 148.00 lb Heart Rate 92 /min BP Systolic Sitting 146 mmHg BP Diastolic Sitting 80 mmHg Respiratory Rate 12 /min BMI (Body Mass Index) 22.5 kg/m2 02/24/2014 Height 68 inches 5'8" Weight 160.00 lb Heart Rate 72 /min BP Systolic Sitting 130 mmHg BP Diastolic Sitting 80 mmHg Respiratory Rate 16 /min BMI (Body Mass Index) 24.3 kg/m2 07/23/2012 Heart Rate 90 /min BP Systolic 148 mmHg BP Diastolic 88 mmHg Respiratory Rate 18 /min Results Test Date Test Result H/L Range Note CBC Auto Diff 08/20/2017 White Blood Count 5.2 10^3/uL 3.5-10.8 Red Blood Count 4.67 10^6/uL 4.0-5.4 Hemoglobin 15.0 g/dL 14.0-18.0 Hematocrit 43 % 42-52 Mean Corpuscular Volume 92 fL 80-94 Mean Corpuscular Hemoglobin 32 pg High 27-31 Mean Corpuscular HGB Conc 35 g/dL 31-36 Red Cell Distribution Width 13 % 10.5-15 Platelet Count 198 10^3/uL 150-450 Mean Platelet Volume 8 um3 7.4-10.4 Abs Neutrophils 2.4 10^3/uL 1.5-7.7 Abs Lymphocytes 2.0 10^3/uL 1.0-4.8 Abs Monocytes 0.6 10^3/uL 0-0.8 Abs Eosinophils 0.2 10^3/uL 0-0.6 Abs Basophils 0.1 10^3/uL 0-0.2 Abs Nucleated RBC 0 10^3/uL Granulocyte % 45.1 % 38-83 Lymphocyte % 38.0 % 25-47 Monocyte % 11.7 % High 1-9 Eosinophil % 3.9 % 0-6 Basophil % 1.3 % 0-2 Nucleated Red Blood Cells % 0.1 Comp Metabolic Panel 08/20/2017 Sodium 140 mmol/L 133-145 Potassium 3.8 mmol/L 3.5-5.0 Chloride 100 mmol/L Low 101-111 Co2 Carbon Dioxide 34 mmol/L High 22-32 Anion Gap 6 mmol/L 2-11 Glucose 105 mg/dL High 70-100 Blood Urea Nitrogen 20 mg/dL 6-24 Creatinine 0.83 mg/dL 0.67-1.17 BUN/Creatinine Ratio 24.1 High 8-20 Calcium 9.5 mg/dL 8.6-10.3 Total Protein 6.2 g/dL Low 6.4-8.9 Albumin 3.9 g/dL 3.2-5.2 Globulin 2.3 g/dL 2-4 Albumin/Globulin Ratio 1.7 1-3 Total Bilirubin 0.90 mg/dL 0.2-1.0 Alkaline Phosphatase 43 U/L 34-104 Alt 13 U/L 7-52 Ast 20 U/L 13-39 Egfr Non- 88.1 >60 Egfr 113.2 >60 1 Laboratory test 08/20/2017 Carcinoembryonic Antigen 1.9 ng/mL 0.1-5.0 2 finding Laboratory test 12/18/2016 Surgical Pathology SEE RESULT BELOW 3 finding CBC Auto Diff 11/07/2016 White Blood Count 5.2 10^3/uL 3.5-10.8 Red Blood Count 4.20 10^6/uL 4.0-5.4 Hemoglobin 9.6 g/dL Low 14.0-18.0 Hematocrit 30 % Low 42-52 Mean Corpuscular Volume 71 fL Low 80-94 Mean Corpuscular Hemoglobin 23 pg Low 27-31 Mean Corpuscular HGB Conc 32 g/dL 31-36 Red Cell Distribution Width 20 % High 10.5-15 Platelet Count 256 10^3/uL 150-450 Mean Platelet Volume 8 um3 7.4-10.4 Abs Neutrophils 2.3 10^3/uL 1.5-7.7 Abs Lymphocytes 1.9 10^3/uL 1.0-4.8 Abs Monocytes 0.7 10^3/uL 0-0.8 Abs Eosinophils 0.2 10^3/uL 0-0.6 Abs Basophils 0 10^3/uL 0-0.2 Abs Nucleated RBC 0.01 10^3/uL Granulocyte % 44.6 % 38-83 Lymphocyte % 36.6 % 25-47 Monocyte % 13.5 % High 1-9 Eosinophil % 4.4 % 0-6 Basophil % 0.9 % 0-2 Nucleated Red Blood Cells % 0.1 Comp Metabolic Panel 11/07/2016 Sodium 138 mmol/L 133-145 Potassium 3.9 mmol/L 3.5-5.0 Chloride 102 mmol/L 101-111 Co2 Carbon Dioxide 30 mmol/L 22-32 Anion Gap 6 mmol/L 2-11 Glucose 94 mg/dL 70-100 Blood Urea Nitrogen 16 mg/dL 6-24 Creatinine 0.92 mg/dL 0.67-1.17 BUN/Creatinine Ratio 17.4 8-20 Calcium 9.1 mg/dL 8.6-10.3 Total Protein 6.3 g/dL Low 6.4-8.9 Albumin 3.8 g/dL 3.2-5.2 Globulin 2.5 g/dL 2-4 Albumin/Globulin Ratio 1.5 1-3 Total Bilirubin 0.70 mg/dL 0.2-1.0 Alkaline Phosphatase 48 U/L 34-104 Alt 8 U/L 7-52 Ast 19 U/L 13-39 Egfr Non- 78.2 >60 Egfr 100.6 >60 4 Inr/Protime 11/07/2016 Inr 0.92 0.89-1.11 Laboratory test finding 11/07/2016 Partial Thrombo Time PTT 29.6 seconds 26.0-36.3 Cell Morphology 11/07/2016 Microcytosis 2+ Hypochromasia 3+ Stomatocytes 1+ 1 Because ethnic data is not always readily available, this report includes an eGFR for both -Americans and non- Americans. The National Kidney Disease Education Program (NKDEP) does not endorse the use of the MDRD equation for patients that are not between the ages of 18 and 70, are , have extremes of body size, muscle mass, or nutritional status, or are non- or non-. According to the National Kidney Foundation, irrespective of diagnosis, the stage of the disease is based on the level of kidney function: Stage Description GFR(mL/min/1.73 m(2)) 1 Kidney damage with normal or decreased GFR 90 2 Kidney damage with mild decrease in GFR 60-89 3 Moderate decrease in GFR 30-59 4 Severe decrease in GFR 15-29 5 Kidney failure <15 (or dialysis) 2 Nonsmokers: < 2.9 ng/mL Some smokers may have elevated CEA, usually <5.0 ng/mL. Serum markers are not specific for malignancy, and values may vary by method. The testing method is an immunoenzymatic assay parts clerk by [employer] performed on [employer] DXI 600. Do not interpret serum CEA levels as absolute evidence of the presence or the absence of malignant disease. Use serum CEA in conjunction with information from the clinical evaluation of the patient and other diagnostic procedures. 3 SEE RESULT BELOW Name: BIPIN PUENTE SR : [address]: Guille Ch MD Acct: [id number] Unit: [id number] AGE: 86 Location: [place] [address]- Re12/18/16 Dis: 12/25/16 SEX: M Status: DIS IN SPEC: [id number] ERMELINDA: 12/18/16- SUBM DR: Guille Ch MD REQ: [id number] RECD: 12/18/16-1215 STATUS: SOUT _ ORDERED: LEVEL 5, LEVEL 6 Addendum: Additional tissue is processed in this case utilizing enhanced dissection technique of the pericolic adipose tissue. This processing yielded an additional 6 lymph nodes with 1 focus of metastatic adenocarcinoma measuring 1.7 mm in maximal span. No extracapsular extension is identified. Revised TNM histopathologic stage is [id number]. Dr. Monteiro has reviewed this case and concurs. Addendum Signed (signature on file) Michael Montiel MD 1613 FINAL DIAGNOSIS 1. Colon, descending, partial colectomy: -- Invasive mucinous adenocarcinoma of colon, with: Histologic grade: Moderately differentiated. Location: Descending colon. Configuration: Exophytic and infiltrative. Size: 4.9 x 2.7 x 2.0 cm. Extent of invasion: Extends into pericolonic adipose tissue. Lymphovascular (small vessel) invasion: Not identified. Venous (large vessel) invasion: Not identified. Perineural invasion: Not identified. Peritumoral lymphocytic response: Non-brisk. Growth pattern at periphery: Infiltrative. Margins: Proximal: Negative by 2.8 cm. Distal: Negative by approximately 3 cm. Radial (circumferential): Negative by 2.3 mm. Lymph nodes: Fourteen lymph nodes negative for metastatic carcinoma (0 /14). Other findings: None. pTNM histopathologic stage: pT3 N0 M N/A. 2. Colon, additional distal end, partial resection: -- No evidence of neoplasia. -- Three lymph nodes negative for metastatic carcinoma (0/3). CONTINUED ON NEXT PAGE * ML=Testing performed at Main Lab DEPARTMENT OF PATHOLOGY, [address] [place] [address] Michael Montiel M.D. Director [facility] # [id number] RUN DATE: 01/14/17 [facility] LAB LIVE PAGE 2 Patient: [place] [id number] (Continued) FINAL DIAGNOSIS (Continued) COMMENT: Dr. Montiel reviewed this case in intradepartmental consultation and agrees with the diagnosis. PRE-OPERATIVE DIAGNOSIS Malignant neoplasm of the transverse colon. 1. Staple manzano proximal GROSS DESCRIPTION 1. The specimen is received in formalin labeled, Descending Colon-Staple Manzano Proximal, and consists of a 9.5 x 2.5 cm portion of colon with abundant adherent yellow -pink fat. One margin is stapled which designates proximal. The serosa is predominantly shaggy baires-red with multiple fibromembranous adhesions. There is a 4.9 x 2.7 cm baires-pink lobulated and nodular exophytic mass 2.8 cm from the proximal margin. The mass focally involves the muscularis propria with a maximum depth of 2.0 cm. The mucosa is glistening baires-pink with normal folds. Sectioning through the adherent fat reveals a few baires-pink possible lymph nodes ranging from 0.2 cm to 0.6 cm in greatest dimension. Correspondence Representative sections are submitted in cassettes A through I as follows: A-proximal margin, B-distal margin, C through F-mass to inked serosa, G-mucosa and H and I-multiple whole lymph nodes. 2. The specimen is received in formalin labeled, Additional Distal End, and consists of a 6.0 by up to 3.5 cm portion of intestinal tissue with moderate adherent yellow pink fat. The serosa is smooth to focally shaggy baires-pink with a few fibromembranous adhesions. The mucosa is glistening baires-pink with normal folds and a small amount of baires- red speckling and focal erythema. Within the adherent fat there are rare baires-pink possible lymph nodes averaging 0.3 cm in greatest dimension. Received separately in the same container is a 3.8 x 2.5 x 2.1 cm yellow-pink irregular focally cauterized portion of adipose tissue. Correspondence Representative sections are submitted in cassettes A through E as follows: A- margin, B and C-mucosa, D-lymph nodes and E-separately received fat. Signed (signature on file) Becca Monteiro MD 1650 END OF REPORT * ML=Testing performed at Main Lab DEPARTMENT OF PATHOLOGY, [address] [place] [address] Michael Montiel M.D. Director [facility] # [id number] 4 Because ethnic data is not always readily available, this report includes an eGFR for both -Americans and non- Americans. The National Kidney Disease Education Program (NKDEP) does not endorse the use of the MDRD equation for patients that are not between the ages of 18 and 70, are , have extremes of body size, muscle mass, or nutritional status, or are non- or non-. According to the National Kidney Foundation, irrespective of diagnosis, the stage of the disease is based on the level of kidney function: Stage Description GFR(mL/min/1.73 m(2)) 1 Kidney damage with normal or decreased GFR 90 2 Kidney damage with mild decrease in GFR 60-89 3 Moderate decrease in GFR 30-59 4 Severe decrease in GFR 15-29 5 Kidney failure <15 (or dialysis) Procedures Date CPT Code Description Status 12/18/2016 75708 Colectomy Partial W/Anastomosis Completed 12/18/2016 11807 Colectomy Partial W/Anastomosis Completed 12/18/2016 89157 Mobilization Splenic Flexure W/Partial Colectomy Completed 12/18/2016 52855 Mobilization Splenic Flexure W/Partial Colectomy Completed 11/11/2016 82418 Color Flow Doppler/Interp & Reprt Completed 11/11/2016 09775 Pulse Wave/Continuous-Interp.RPT Completed 11/11/2016 85327 Echocardiography, Transesophageal, Real Time W/Image 2D Completed W/W/O M-M 11/06/2016 22702 Stress Test Completed 11/06/2016 15072 Myocardial Perfusion Imaging Tomographic (Spect) Completed Multiple Studies 11/01/2016 08923 ECHO Transthoracic, Real-Time 2D With Doppler And Color Completed Flow 10/28/2016 28666 EKG Tracing & Interpretation Completed 11/14/2014 28762 ECHO Transthorasic Realtime 2D W Doppler & Color Completed Flow Hosp Encounters Type Date Location Provider CPT E/M Dx Office Visit 06/19/2017 [facility] Mehreen Brennan, 36365 G82.22 11:30a [facility] [employer] [facility] Cabrera.D. I67.9 Office Visit 02/11/2017 10:15a [facility] Mehreen Brennan, 33691 G82.22 Services [facility] [employer] [facility] M.D. I67.9 Z79.02 Office Visit 12/25/2016 3:16p [facility] [place], [address] I35.0 Assoc,pc [facility] Z90.49 Z86.73 I10 Office Visit 12/24/2016 3:15p [facility] [place], [address]359 I35.0 Assoc,pc [facility] Z86.73 Z90.49 I10 Office Visit 12/23/2016 3:15p [facility] [place], [address]87[address] I35.0 Assoc,pc [facility] Z86.73 Z90.49 I10 Office Visit 12/22/2016 3:14p [facility] Vesna Alatorre, N.P. 92153 I35.0 Hospitalists Z86.73 Z90.49 I10 Office Visit 12/21/2016 3:13p [facility],lisa Alatorre N.P. 96690 I35.0 Hospitalists Z90.49 I10 Office Visit 12/20/2016 3:13p [facility] Vesna Alatorre, N.P. 80459 I35.0 Hospitalists Z90.49 Z86.73 I10 Office Visit 12/19/2016 3:12p [facility] Vesna Alatorre, N.P. 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 FAC Z01.810 Office Visit 10/28/2016 1:00p [facility] Gu[facility] Gutierrez, [address] [facility] DO FAC I35.0 C18.9 Office Visit 10/07/2016 3:00p [facility] [place] [address] [facility] Office Visit 12/21/2015 8:30a [facility] Mehreen Brennan, 904[address] G82.22 Services Of Robbi Sierra I67.9 Z79.02 Office Visit 02/28/2015 10:45a [facility] Mehreen Brennan, 53163 344.1 MVitaly Office Visit 11/15/2014 8:52a [facility], Denis Lloyd, 70087 780.2 Hospitalists M.DMki 785.2 401.9 Office Visit 11/13/2014 8:48a [facility], Juan Duque, 36709 780.2 Hospitalists N.P. 785.2 365.9 401.9 Office Visit 02/24/2014 2:45p [facility] Mehreen Brennan, 69207 344.1 Services Of Robbi Sierra Office Visit 07/23/2012 8:30a [facility] Mehreen Brennan, 25005 344.1 Services Of Robbi Sierra Office Visit 09/15/2007 2:00p Neurosurgery Services Arsh Hawkins, 63795 721.0 Of Robbi Sierra Plan of Care Future Appointment(s):03/10/2018 10:30 am - Jose Santana M.D. at 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
[2017-12-30] MEDS ORDERED: NS 0.9% 1000 ML* 1,000 ML IV ONE (14:29)
[2017-12-30 14:50] LABS: ABS Basophils 0.1 10^3/ul (0-0.2); ABS Eosinophils 0.2 10^3/ul (0-0.6); ABS Lymphocytes 1.9 10^3/ul (1.0-4.8); ABS Monocytes 0.7 10^3/ul (0-0.8); ABS Nucleated RBC 0 10^3/ul; Eosinophil % 3.3 % (0-6); Hematocrit 42 % (42-52); Hemoglobin 14.8 g/dl (14.0-18.0); Mean Corpuscular HGB Conc 35 g/dl (31-36); Mean Corpuscular Hemoglobin 32 pg (27-31); Mean Corpuscular Volume 90 fL (80-94); Mean Platelet Volume 7.7 um3 (7.4-10.4); Nucleated Red Blood Cells % 0.1; Platelet Count 184 10^3/ul (150-450); Red Cell Distribution Width 13 % (10.5-15); White Blood Count 5.9 10^3/ul (3.5-10.8)
[2017-12-30 15:03] LABS: INR 0.86 (0.77-1.02)
[2017-12-30 15:13] LABS: EGFR Non-African American 74.3 (>60)
--- NOTE | 2017-12-30 15:14 | RAD ---
INDICATION: Weakness COMPARISON: CT chest October 10, 2016; chest x-ray November 13, 2014 TECHNIQUE: An AP portable view obtained at 1443 hours is submitted. FINDINGS: Bones/Soft Tissues: There are no acute bony findings. Cardiomediastinal: The cardiomediastinal silhouette is normal. Lungs: There are no infiltrates. Pleura: There are left-sided pleural calcifications. Other: There is left-sided diaphragmatic defect documented on earlier CT imaging in the appearance unchanged on the plain radiograph IMPRESSION: NO ACTIVE DISEASE.
[2017-12-30 16:29] LABS: Urine Appearance Clear; Urine Blood Negative (Negative); Urine Color Yellow; Urine Ketones Negative (Negative); Urine Protein Negative (Negative); Urine Specific Gravity 1.014 (1.010-1.030); Urine Urobilinogen Negative (Negative)
--- NOTE | 2017-12-30 16:52 | RAD ---
HISTORY: Dizziness COMPARISONS: November 13, 2014 TECHNIQUE: Multiple contiguous axial CT scans were obtained of the head without intravenous contrast. FINDINGS: HEMORRHAGE/INFARCT: There is no hemorrhage or acute infarct. MASSES/SHIFT: There is no mass or shift. EXTRA-AXIAL SPACES: There are no extra-axial fluid collections. SULCI AND VENTRICLES: There is diffuse and proportional enlargement of the sulci and ventricles. CEREBRUM: There is hypoattenuation of the periventricular and subcortical white matter. 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 BRAINSTEM: There are no focal parenchymal abnormalities. CEREBELLUM: There are no focal parenchymal abnormalities. VESSELS: There is calcification of the cavernous segments of the internal carotid arteries bilaterally and of the distal vertebral arteries bilaterally. PARANASAL SINUSES: The paranasal sinuses are clear. ORBITS: The orbits are unremarkable. BONES AND SOFT TISSUE: No bone or soft tissue abnormalities are noted. OTHER: None IMPRESSION: NO ACUTE INTRACRANIAL PATHOLOGY. 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
[2017-12-30] MEDS ORDERED: Potassium Chlor TAB* 20 MEQ TAB.ER PO ONE (17:23)
--- NOTE | 2017-12-30 17:53 | ED ---
Martínez Marquis Tiffany, scribed for Alfonso Lauren on 12/30/17 at 1425 . Neurological HPI - HPI Summary HPI Summary: 87 y/o M BIBAsael to [facility] complains of increasing weakness since one hour ago. Symptoms aggravated and alleviated by nothing. Denies chest pain, shortness of breath, abdominal pain. - History of Current Complaint Chief Complaint: EDWeakness Stated Complaint: WEAKNESS Time Seen by Provider: 12/30/17 14:01 Hx Obtained From: Patient Onset/Duration: Started hours ago - 1 hour, Still Present Aggravating: Nothing Alleviating: Nothing Associated Signs and Symptoms: Positive: Negative - chest pain, shortness of breath, abdominal pain - Additional Pertinent History Primary Care Physician: AUR[facility]A - Allergy/Home Medications Allergies/Adverse Reactions: Allergies Allergy/AdvReac Type Severity Reaction Status Date / Time No Known Allergies Allergy Verified 12/18/16 06:58 Home Medications: Home Medications Brimonidine P 0.1%(NF) [Alphagan P 0.1% (NF)] 1 drop BOTH EYES BID 12/30/17 [ History Confirmed 12/30/17] Clopidogrel TAB* [Plavix TAB*] 75 mg PO DAILY 12/30/17 [History Confirmed ] Cyanocobalamin TAB* [Vitamin B12 TAB*] 500 mcg PO DAILY 12/30/17 [History Confirmed 12/30/17] Fluvastatin (NF) [Lescol (NF)] 40 mg PO BEDTIME 12/30/17 [History Confirmed ] Folic Acid TAB* [Folvite TAB*] 1 mg PO DAILY 12/30/17 [History Confirmed ] Hydrochlorothiazide TAB* [Hydrodiuril TAB*] 25 mg PO DAILY 12/30/17 [History Confirmed 12/30/17] Losartan TAB* [Cozaar TAB*] 100 mg PO DAILY 12/30/17 [History Confirmed 12/30/17 ] Multivit-Min/FA/Lycopen/Lutein [Centrum Silver Men Tablet] 1 each PO DAILY 12/30 [History Confirmed 12/30/17] Timolol 0.5% OPTH.LAN* [Timoptic 0.5% Opth*] 1 drop BOTH EYES QAM 12/30/17 [ History Confirmed 12/30/17] Travoprost Z 0.004% OPHTH (NF) [Travatan Z 0.004% OPTH (NF)] 1 drop BOTH EYES BEDTIME 12/30/17 [History Confirmed 12/30/17] prednisoLONE 1% OPHTH.SUSP* [Pred Forte 1%*] 1 drop BOTH EYES DAILY 12/30/17 [ History Confirmed 12/30/17] PMH/Surg Hx/FS Hx/Imm Hx Previously Healthy: No Endocrine/Hematology History: Reports: Hx Anticoagulant Therapy - s/t cva, Hx Anemia Denies: Hx Diabetes, Hx Thyroid Disease Cardiovascular History: Reports: Hx Hypercholesterolemia, Hx Hypertension, Hx Syncope, Other Cardiovascular Problems/Disorders - CHOLESTEROL CONTROL WITH MEDS Denies: Hx Peripheral Vascular Disease Respiratory History: Denies: Hx Chronic Obstructive Pulmonary Disease (COPD) GI History: Reports: Other GI Disorders - new diagnosis colon CA Denies: Hx Gastroesophageal Reflux Disease History: Denies: Hx Dialysis, Hx Renal Disease Musculoskeletal History: Denies: Hx Back Problems Sensory History: Reports: Hx Cataracts, Hx Glaucoma - BILATERAL, Hx Deafness, Hx Hearing Problem Denies: Hx Contacts or Glasses, Hx Hearing Aid Opthamlomology History: Reports: Hx Cataracts, Hx Glaucoma - BILATERAL Denies: Hx Contacts or Glasses Neurological History: Reports: Other Neuro Impairments/Disorders - HX OF VERTIGO Denies: Hx Dementia, Hx Headaches, Hx Migraine, Hx Seizures Psychiatric History: Denies: Hx Anxiety, Hx Attention Deficit Hyperactivity Disorder, Hx Eating Disorder, Hx Depression, Hx Panic Disorder, Hx Post Traumatic Stress Disorder, Hx Inpatient Treatment, Hx Community Mental Health Tx, Hx Schizophrenia, Hx Bipolar Disorder, Hx Suicide Attempt, Hx of Violent Episodes Against Others, Hx Substance Abuse, Other Psychiatric Issues/Disorders - Cancer History Cancer Type, Location and Year: 2017 colon CA Hx Chemotherapy: No - Surgical History Surgery Procedure, Year, and Place: APPENDECTOMY. TONSILLECTOMY A CHILD,. 2009 BILATERAL CATARACT EXTRACTION WITH IOL IMPLANT AND CTR, [facility]. 2014 LEFT EAR AND RESECTION OF PARTIAL EXTERNAL EAR CANAL, [facility] Hx Anesthesia Reactions: No - Immunization History Date of Tetanus Vaccine: Unsure Date of Influenza Vaccine: 2012 Infectious Disease History: No Infectious Disease History: Denies: Hx Clostridium Difficile, Hx Hepatitis, Hx Human Immunodeficiency Virus (HIV), Hx of Known/Suspected MRSA, Hx Shingles, Hx Tuberculosis, History Other Infectious Disease, Traveled Outside the [place] in Last 30 Days - Family History Known Family History: Positive: Cardiac Disease, Diabetes, Other - DVT, leukemia - Social History Alcohol Use: None Hx Substance Use: No Substance Use Type: Reports: None Hx Tobacco Use: No Smoking Status (MU): Never Smoked Tobacco Have You Smoked in the Last Year: No Review of Systems Negative: Chest Pain Negative: Shortness Of Breath Negative: Abdominal Pain Positive: Weakness All Other Systems Reviewed And Are Negative: Yes Physical Exam - Summary Physical Exam Summary: Appearance: Well appearing, no pain distress. Patient is confused and alert. Skin: warm, dry, reflects adequate perfusion Head/face: normal Eyes: EOMI, YUN ENT: dry mucous membranes Neck: supple, non-tender Respiratory: CTA, breath sounds present Cardiovascular: RRR, pulses symmetrical Abdomen: non-tender, soft Bowel: present Musculoskeletal: normal, strength/ROM intact Neuro: normal, sensory motor intact, A&Ox3 Triage Information Reviewed: Yes Vital Signs On Initial Exam: Initial Vitals Temp Pulse Resp BP Pulse Ox 98.1 F 83 12 126/74 94 12/30/17 13:57 12/30/17 13:57 12/30/17 13:57 12/30/17 13:57 12/30/17 13:57 Vital Signs Reviewed: Yes Diagnostics - Vital Signs Vital Signs Temp Pulse Resp BP Pulse Ox 12/30/17 14:14 81 15 96 12/30/17 13:57 98.1 F 83 12 126/74 94 - Laboratory Lab Results: Lab Results 12/30/17 12/30/17 12/30/17 Range/Units 14:39 14:39 14:40 WBC 5.9 (3.5-10.8) 10^3/ul RBC 4.70 (4.0-5.4) 10^6/ul Hgb 14.8 (14.0-18.0) g/dl Hct 42 (42-52) % MCV 90 (80-94) fL MCH 32 H (27-31) pg MCHC 35 (31-36) g/dl RDW 13 (10.5-15) % Plt Count 184 (150-450) 10^3/ul MPV 7.7 (7.4-10.4) um3 Neut % (Auto) 51.2 (38-83) % Lymph % (Auto) 33.0 (25-47) % [place] % (Auto) 11.5 H (0-7) % Eos % (Auto) 3.3 (0-6) % Baso % (Auto) 1.0 (0-2) % Absolute Neuts (auto) 3.0 (1.5-7.7) 10^3/ul Absolute Lymphs (auto) 1.9 (1.0-4.8) 10^3/ul Absolute Monos (auto) 0.7 (0-0.8) 10^3/ul Absolute Eos (auto) 0.2 (0-0.6) 10^3/ul Absolute Basos (auto) 0.1 (0-0.2) 10^3/ul Absolute Nucleated RBC 0 10^3/ul Nucleated RBC % 0.1 INR (Anticoag Therapy) 0.86 (0.77-1.02) APTT 29.3 (26.0-36.3) seconds Sodium (139-145) mmol/L Potassium (3.5-5.0) mmol/L Chloride (101-111) mmol/L Carbon Dioxide (22-32) mmol/L Anion Gap (2-11) mmol/L BUN (6-24) mg/dL Creatinine (0.67-1.17) mg/dL Est GFR ( Amer) (>60) Est GFR (Non-Af Amer) (>60) BUN/Creatinine Ratio (8-20) Glucose (70-100) mg/dL Lactic Acid 1.7 (0.5-2.0) mmol/L Calcium (8.6-10.3) mg/dL Total Bilirubin (0.2-1.0) mg/dL AST (13-39) U/L ALT (7-52) U/L Alkaline Phosphatase (34-104) U/L Total Creatine Kinase (10-223) U/L Troponin I (<0.04) ng/mL B-Natriuretic Peptide ( - 100) pg/mL Total Protein (6.4-8.9) g/dL Albumin (3.2-5.2) g/dL Globulin (2-4) g/dL Albumin/Globulin Ratio (1-3) TSH (0.34-5.60) mcIU/mL Urine Color Urine Appearance Urine pH (5-9) Ur Specific [place] (1.010-1.030) Urine Protein (Negative) Urine Ketones (Negative) Urine Blood (Negative) Urine Nitrate (Negative) Urine Bilirubin (Negative) Urine Urobilinogen (Negative) Ur Leukocyte Esterase (Negative) Urine Glucose (Negative) 12/30/17 12/30/17 12/30/17 Range/Units 14:40 14:40 16:20 WBC (3.5-10.8) 10^3/ul RBC (4.0-5.4) 10^6/ul Hgb (14.0-18.0) g/dl Hct (42-52) % MCV (80-94) fL MCH (27-31) pg MCHC (31-36) g/dl RDW (10.5-15) % Plt Count (150-450) 10^3/ul MPV (7.4-10.4) um3 Neut % (Auto) (38-83) % Lymph % (Auto) (25-47) % [place] % (Auto) (0-7) % Eos % (Auto) (0-6) % Baso % (Auto) (0-2) % Absolute Neuts (auto) (1.5-7.7) 10^3/ul Absolute Lymphs (auto) (1.0-4.8) 10^3/ul Absolute Monos (auto) (0-0.8) 10^3/ul Absolute Eos (auto) (0-0.6) 10^3/ul Absolute Basos (auto) (0-0.2) 10^3/ul Absolute Nucleated RBC 10^3/ul Nucleated RBC % INR (Anticoag Therapy) (0.77-1.02) APTT (26.0-36.3) seconds Sodium 138 L (139-145) mmol/L Potassium 3.2 L (3.5-5.0) mmol/L Chloride 99 L (101-111) mmol/L Carbon Dioxide 32 (22-32) mmol/L Anion Gap 7 (2-11) mmol/L BUN 21 (6-24) mg/dL Creatinine 0.96 (0.67-1.17) mg/dL Est GFR ( Amer) 95.5 (>60) Est GFR (Non-Af Amer) 74.3 (>60) BUN/Creatinine Ratio 21.9 H (8-20) Glucose 145 H (70-100) mg/dL Lactic Acid (0.5-2.0) mmol/L Calcium 9.3 (8.6-10.3) mg/dL Total Bilirubin 1.40 H (0.2-1.0) mg/dL AST 20 (13-39) U/L ALT 11 (7-52) U/L Alkaline Phosphatase 35 (34-104) U/L Total Creatine Kinase 54 (10-223) U/L Troponin I 0.00 (<0.04) ng/mL B-Natriuretic Peptide 57 ( - 100) pg/mL Total Protein 6.3 L (6.4-8.9) g/dL Albumin 3.8 (3.2-5.2) g/dL Globulin 2.5 (2-4) g/dL Albumin/Globulin Ratio 1.5 (1-3) TSH 1.80 (0.34-5.60) mcIU/mL Urine Color Yellow Urine Appearance Clear Urine pH 6.0 (5-9) Ur Specific [place] 1.014 (1.010-1.030) Urine Protein Negative (Negative) Urine Ketones Negative (Negative) Urine Blood Negative (Negative) Urine Nitrate Negative (Negative) Urine Bilirubin Negative (Negative) Urine Urobilinogen Negative (Negative) Ur Leukocyte Esterase Negative (Negative) Urine Glucose Negative (Negative) Result Diagrams: 12/30/17 14:40 12/30/17 14:40 Lab Statement: Any lab studies that have been ordered have been reviewed, and results considered in the medical decision making process. - Radiology CXR Radiology Interpretation Completed By: Radiologist - No active disease. ED physician has reviewed this report. - CT Brain CT Interpretation Completed By: Radiologist - NO ACUTE INTRACRANIAL PATHOLOGY. 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 ED physician has reviewed this report. - EKG 14:33 Cardiac Rate: NL - 78 BPM EKG Rhythm: Sinus Rhythm EKG Interpretation: No acute changes Re-Evaluation - Re-Evaluation First Eval Re-Evaluation Time: 17:45 Change: Unchanged Comment: Discussed discharge plan, and pt agreeable to discharge. Course/Dx - Course Course Of Treatment: 87 y/o M BIBA to [facility] complains of increasing weakness since one hour ago. Bloodwork/UA, imaging obtained. Patient will be discharged with . - Differential Dx Differential Diagnoses Neuro: Positive: Viral Syndrome, Other - weakness/ dizziness - Diagnoses Provider Diagnoses: Weakness Discharge - Sign-Out/Discharge Documenting (check all that apply): Discharge/Admit/Transfer - Discharge Plan Condition: Stable Disposition: HOME Patient Education Materials: Weakness (ED) Referrals: Carmelo Davis MD [Primary Care Provider] - 3 Days Additional Instructions: Follow up with your primary care provider in 3 days. Return to the Emergency Department for any new or worsening symptoms. - Billing Disposition and Condition Condition: STABLE Disposition: HOME The documentation as recorded by the Martínez delgado Tiffany accurately reflects the service I personally performed and the decisions made by , Alfonso Lauren.
[2017-12-30 18:18] VITALS: BP 136/82
== END 2017-12-30 18:17 | disposition home or self-care (01) ==
LOC: ED 13:49
DX: R53.1 Weakness (principal); I10 Essential (primary) hypertension; E78.00 Pure hypercholesterolemia, unspecified; Z86.73 Personal history of transient ischemic attack (TIA), and cerebral infarction without residual deficits; Z79.02 Long term (current) use of antithrombotics/antiplatelets; Z79.899 Other long term (current) drug therapy
CPT/HCPCS: 36415; 70450; 71045; 80053; 81003; 82550; 83605; 83880; 84443; 84484; 85025; 85610; 85730; 93005; 96360; 96361; 99284; A9270-GY